=== PATIENT | male | born 1965 | race Caucasian/White ===

== ENCOUNTER 2019-05-17 05:20 | Day surgery (SDC) | payer BC ==
[~2019-05-17] VITALS: Ht 188 cm; Wt 129.3 kg
[2019-05-17 05:46] LABS: INR 0.95 (0.85-1.17); PROTIME 12.6 SECONDS (11.6-15.0)
[2019-05-17 05:48] LABS: ANION GAP 17.5 mmol/L (8-16); CALCIUM 8.6 mg/dL (8.5-10.1); CARBON DIOXIDE 21.2 mmol/L (21.0-32.0); CREATININE - SERUM 6.1 mg/dL (0.6-1.3); POTASSIUM - SERUM 4.7 mmol/L (3.5-5.1)
[2019-05-17 05:56] LABS: BASOPHILS 0.9 % (0-2); EOSINOPHILS 8.1 % (0-7); HEMATOCRIT 37.3 % (42.0-54.0); HEMOGLOBIN 11.6 g/dL (13.5-17.5); IMMATURE GRANULOCYTES 0.1 % (0-5); LYMPHOCYTES 17.7 % (15-50); MCH 28.8 pg (26.0-34.0); MCHC 31.1 g/dL (31.0-37.0); MCV 92.6 fL (80.0-100.0); MEAN PLATELET VOLUME 12.5 fL (7.4-10.4); NEUTROPHILS 62.2 % (40-80); PLATELET COUNT 458 10x3/uL (130-400); RBC 4.03 10x6/uL (4.20-6.10); RDW 14.5 % (11.5-14.5); WBC 10.4 10x3/uL (4.8-10.8)
[2019-05-17 06:54] VITALS: Ht 188 cm; Wt 129.3 kg
--- NOTE | 2019-05-22 17:00 | OP ---
PATIENT NAME: ALYX REID MEDICAL RECORD: [id number] :69 LOCATION:[facility] ADMISSION DATE: SURGEON: AKASH SCALES MD DATE OF OPERATION: 05/17/2019 REFERRED BY: Oswaldo Gray MD PREOPERATIVE DIAGNOSIS: Chronic kidney disease stage V and also cancer of the pancreas status post 2 years out from R0 Whipple resection at [facility] with no evidence of disease as of present. OPERATION PERFORMED TODAY: 1. Laparoscopic implantation of peritoneal dialysis catheter with embedding of the external catheter for later exteriorization and use when needed. 2. Creation of a left brachiocephalic arterial venous fistula Vidhi type. SURGEON: Akash Scales MD PREOPERATIVE NOTE: Mr. Reid is a 53-year-old, seemingly healthy, robust 53-year-old man with a BMI of about 34. He weighs 290-300 pounds and is 6 feet 5 inches tall. He is out 2 years from a Whipple resection and doing great so far. His kidneys though have deteriorated and it is anticipated he is going to require dialysis within the next few months. He was referred to me by Dr. Gray for placement or creation of an AV fistula and also for implantation of peritoneal dialysis catheter. We have elected to do the PD catheter at the same time as the fistula with plans to embed the catheter and exteriorize it later closer to when he needs to start peritoneal dialysis training. Under general anesthesia with also a regional nerve block of the left upper extremity, the patient was placed in supine position and prepped and draped in a sterile manner. I entered the abdomen with a 5 mm XL Optiview port and a 5-mm 0-degree straight laparoscope. This was done easily and the abdomen was then insufflated with carbon dioxide. The patient was then examined with a 30-degree angled 5-mm scope. There were numerous adhesions of small intestine and colon, I think, to the anterior abdominal wall in the upper midline. I did not take down or divide any of these adhesions. I was not able to examine the liver due to my entry high on the left in the presence of the adhesions, the lower abdomen and pelvis were relatively free of adhesions and there was no significant omentum in the pelvis. I measured before insufflation and marked on the abdominal skin with a Merit PD stencil to the left of the midline and below the level of the umbilicus. I made a vertical incision and carried this down to the anterior rectus sheath. The patient had a large number of large calcified arteries in the subcutaneous tissues and emerging from the rectus sheath with a dilated subcutaneous veins in this region as well. Hemostasis was obtained with electrocautery and a minimum number of Vicryl sutures. I placed a pursestring suture in the anterior rectus sheath at the site corresponding to that measured and determined to be suitable for the final location of the deep cuff. We chose a standard adult Merit Flex-Neck Classic catheter with dual cuffs and coil. It was rinsed and irrigated and all air expressed from the felt cuffs and it was then placed on a elena. A special introducer needle and plastic sheath was inserted through the pursestring suture and an obliquely through the substance of the rectus muscle and with the aid of laparoscopy it was passed down towards the pelvis through a preperitoneal tunnel as far as possible. The catheter was then inserted through the plastic sheath and the plastic sheath removed. The coiled end of the catheter came to rest seemingly in excellent position in the OPERATIVE REPORT [id number] ALYX REID pelvis. The deeper cuff was then pushed into the rectus and the pursestring suture tied over it. The catheter was irrigated with saline and it was determined that the tie was not too tight as it irrigated very freely. The catheter was then placed in a subcutaneous tunnel directed superiorly and laterally to the left to a premarked desirable exit site. From there, we measured directly laterally to where the end of the catheter might come to rest when embedded. Another small incision was made there and a trocar passed from lateral to the medial incisions. The catheter was at that point attached to IV tubing and 1000 cc of saline was run into the abdomen and rapidly and then run back out rapidly. We collected about 800 cc of saline before ending the procedure. That specimen of 800 cc of normal saline in the peritoneal lavage or irrigation was sent in entirety to the laboratory for cytology just due to the possibility that the malignant pancreatic cells might be present and picked up in that manner. The catheter was then heparin locked and plugged and pulled through the subcutaneous tunnel and then detached from the tunneler and the additional screw tip was placed into the plug and the plugged end of the catheter was buried in the subcutaneous tissues. The wounds were infiltrated and irrigated with Marcaine and then closed with interrupted inverted 3-0 Vicryl and then running intracuticular 4-0 Stratafix. The smaller incisions were closed with interrupted inverted subcuticular 3-0 Vicryl. All 3 incisions were sealed and further closed with Dermabond glue and dressed with Maxorb Ag, Tegaderm, and Cavilon skin prep. The patient was then reprepped and draped. A Fernando drain was placed around the left arm to act as a venous tourniquet and topical nitroglycerin ointment was placed on the intact skin of the arm and forearm. The superficial veins stood out nicely as a result of the nerve block. I examined him with ultrasound and found that he did have what would have been a suitable cephalic vein at the wrist with the radial artery was quite small. I wondered if perhaps the radial artery had been used for an arterial line when he was so ill and operated at [facility]. At any rate, radiocephalic fistula was not feasible. There was a large brachial artery and good cephalic and basilic veins. I did not think that a forearm loop graft would be the best choice, especially since we have some time to mature a fistula and went ahead with a brachiocephalic fistula. A transverse incision was made just below the antecubital space and the brachial artery and the median cubital vein were exposed, dissected from surrounding tissues and controlled with atraumatic vascular clamps or Silastic vessel loops. The vein was ligated distally and to the counter installer branch was doubly ligated and divided. The vein distally was then divided and bevelled. It was flushed with heparinized saline and treated with topical papaverine and atraumatic vascular clamp was used and proximally on the vein. The artery was occluded and then opened at the anticipated arteriotomy, it was flushed with heparinized saline and prepared for anastomosis. The vein was then anastomosed end of vein to side of artery with running 7-0 Prolene. When the anastomosis was completed and the occluding clamps and loops were released, excellent flow immediately developed within the fistula manifested by pulsatile continuous Doppler flow and a palpable pulsation and palpable thrill. There was persistence of good pulsatile ulnar artery flow at the wrist and a more feeble radial artery pulse was still present, however. The wound was irrigated with saline and then closed with interrupted inverted 3-0 Vicryl and running intracuticular 4-0 Stratafix and Dermabond glue. It was dressed with Maxorb Ag, Tegaderm, and Cavilon skin prep. At this point, the OPERATIVE REPORT [id number] ALYX REID patient was awakened and his arm was placed in a sling and he was taken to the recovery room. Blood loss during the operation was minimal about 1 cc, it was unreplaced. Sponges, instruments, and needles were accounted for and no drain was used. A specimen of a peritoneal irrigation was sent for cytology. The patient will go home today with a prescription for [place] 5/325. He can take 1 or 2 every 4 hours as needed p.r.n. pain and encouraged to use ice on the abdominal areas of tenderness or pain and he will be supplied with an abdominal binder to wear p.r.n. for his comfort aid with coughing and deep breathing, etc. He is to call my office on Monday morning and make an appointment to see me during the following week. He is to call me, of course, in the interim if there are any difficulties, problems, concerns, etc. TRANSINT:[id number] Voice Confirmation ID: [id number] DOCUMENT ID: [id number] [facility]: [facility] West[place] MD at 1700 CC: OSWALDO GRAY [id number] DICTATION DATE: 05/17/191741 RADIO SPORTSCASTER: 05/18/19 0353 [facility] 05/17/19 [facility] [address] [place] [address]
== END 2019-05-17 18:40 | disposition home or self-care (01) ==
LOC: D.OPS 05:20
PROVIDERS: Surgery; ATTEND Internal Medicine
DX: N18.5 Chronic kidney disease, stage 5 (principal); Z85.07 Personal history of malignant neoplasm of pancreas

== ENCOUNTER → 2019-08-05 18:53 | Outpatient (CLI) | payer BC ==
[2019-05-17 06:54] VITALS: BMI 36.6
[~2019-08-05 18:53] MED LIST: BAYER CHEWABLE81 MG PO; BUMEX2 MG PO; CARDURA4 MG PO; CREON (PANCRELI1 CAP PO; DILTIAZEM 24HR240 M4 PO; HYDROCODON-ACE1 EAC7 PO; LEVEMIR FL100 UNIT/1 SC; NOVOLOG INJ FLE; VITAMIN D10000 UNI1 PO
== END | disposition home or self-care (01) ==
LOC: D.LABREF 18:53
PROVIDERS: ATTEND Surgery
DX: N18.6 End stage renal disease (principal); Z99.2 Dependence on renal dialysis

== ENCOUNTER 2019-12-31 06:00 | Day surgery (SDC) | payer BC ==
[~2019-12-31] VITALS: Ht 195.6 cm; Wt 120.2 kg
[2019-12-31 06:29] LABS: ANION GAP 11.1 mmol/L (8-16); CALCIUM 8.7 mg/dL (8.5-10.1); CARBON DIOXIDE 30.7 mmol/L (21.0-32.0); CREATININE - SERUM 6.5 mg/dL (0.6-1.3); POTASSIUM - SERUM 4.8 mmol/L (3.5-5.1)
[2019-12-31 06:38] LABS: BASOPHILS 1.3 % (0-2); EOSINOPHILS 4.4 % (0-7); HEMATOCRIT 36.3 % (42.0-54.0); HEMOGLOBIN 11.3 g/dL (13.5-17.5); IMMATURE GRANULOCYTES 0.2 % (0-5); INR 0.94 (0.85-1.17); LYMPHOCYTES 22.3 % (15-50); MCH 28.9 pg (26.0-34.0); MCHC 31.1 g/dL (31.0-37.0); MCV 92.8 fL (80.0-100.0); MEAN PLATELET VOLUME 10.9 fL (7.4-10.4); MONOCYTES 14.7 % (2-11); NEUTROPHILS 57.1 % (40-80); PLATELET COUNT 406 10x3/uL (130-400); PROTIME 12.5 SECONDS (11.6-15.0); RBC 3.91 10x6/uL (4.20-6.10); RDW 14.8 % (11.5-14.5); WBC 10.3 10x3/uL (4.8-10.8)
[2019-12-31 07:20] VITALS: Ht 195.6 cm; Wt 120.2 kg
[2019-12-31] MEDS ORDERED: METOPROLOL TART25 MG PO (07:40)
[2019-12-31] MEDS ORDERED: COZAAR100 MG PO (07:41)
[2019-12-31] MEDS ORDERED: RENVELA800 MG PO (07:42)
[2019-12-31] MEDS ORDERED: ULTRAM50 MG PO (10:03)
--- NOTE | 2019-12-31 11:02 | NUR ---
1055 PT HAD AN INVOLENTARY BM AFTER SURGERY IN RR, CLEANED PT AND CHANGED LINENS.
--- NOTE | 2020-01-03 09:22 | OP ---
PATIENT NAME: ALYX REID MEDICAL RECORD: [id number] :69 [facility] DATE: SURGEON: AKASH SCALES MD DATE OF OPERATION: 12/31/2019 REFERRED BY: Dr. Solomon. DIAGNOSES: End-stage renal disease and dependence on hemodialysis and the patient electing to discontinue peritoneal dialysis in favor of hemodialysis. OPERATION PERFORMED: Removal of peritoneal dialysis catheter. SURGEON: Akash Scales MD ANESTHESIA: General with LMA per FURNITURE ASSEMBLER. PREOPERATIVE NOTE: Mr. Reid is a 54-year-old white male patient with end-stage renal disease, who has elected to stop peritoneal dialysis and is brought to the operating room today to remove his catheter. Under a general anesthetic with an LMA per FURNITURE ASSEMBLER, the patient was placed in supine position and prepped and draped in sterile manner. Two incisions were made to free the 2 Dacron felt cuffs from the surrounding subcutaneous tissues and from the rectus sheath. The catheter was removed intact and it was discarded. No specimen was submitted for culture or any other documentation by pathology. The anterior rectus sheath was closed with a [id number] 0 Vicryl suture. The wounds were then irrigated with Ancef and gentamicin solution. They were infiltrated with 0.25% Marcaine with epinephrine and then closed with interrupted inverted 3-0 Vicryl and running intracuticular 4-0 Stratafix and Dermabond glue. They were dressed with Cavilon, Maxorb AG, and Tegaderms. The patient was awakened and in stable condition returned to the recovery room. There was no blood loss during the procedure. Sponges, instruments, and needles were accounted for. No drain was used and no surgical specimen submitted for histopathology. PLAN: The patient will be discharged today. We will resume his same medications, diet, activities and dialysis schedule. Appointments to be made for him to follow up in my office either with me or with my office nurse for a wound check in 7-10 days. Until that time, he should keep the original operative dressings dry and intact. TRANSINT:[id number] Voice Confirmation ID: [id number] DOCUMENT ID: [id number] AKASH SCALES MD at 0922 CC: MANUEL SOLOMON DO [id number] DICTATION DATE: 12/31/19 1020 BUTTING SAW OPERATOR: 12/31/19 1416 [facility]P SDC 12/31/19 [facility] [address] [id number]
== END 2019-12-31 11:50 | disposition home or self-care (01) ==
LOC: D.OPS 06:00
PROVIDERS: Surgery; ATTEND Internal Medicine
DX: N18.6 End stage renal disease (principal); Z99.2 Dependence on renal dialysis

== ENCOUNTER 2020-06-17 14:03 | Inpatient (IN) | payer MEDICARE, BC ==
[~2020-06-17] VITALS: Ht 195.6 cm; Wt 120.2 kg
--- NOTE | ~2020-06-17 | HEMODYNAMI ---
PATIENT:ALYX WALSH MEDICAL RECORD: [id number] : 69 LOCATION:[place] [address] ADMISSION DATE: 06/17/20 Generatedon:111:17 Patient name: ALYX WALSH Patient #: [id number] SSN: : 1965 Date of study: 06/23/2020 Page: Of Hemodynamic Procedure Report Patient Data Patient Demographics Procedure consent was obtained First Name: ALYX Gender: Male Last Name: NICO : 1965 Patient #: [id number] Age: 55 year(s) Race: Unknown Additional ID: [id number] Contact details Address: [place] [address] State: [place] City: [place] Zip code: [address] Past Medical History Allergies: No known allergies Admission Admission Data Admission Date: 06/17/2020 Admission Time: 18:07 Room #: [facility] Height (in.): 77 BSA: 2.52 (m2) Height (cm.): 195.58 BMI: 31.42 (kg/m2) Weight (lbs.): 265 Weight (kg.): 120.2 Procedure Procedure Types Cath Procedure Peripheral Cath Diagnostic Procedure Abd/Extremity Extremities Bilat Lower Extremity Procedure Description Procedure Date Procedure Date: 06/23/2020 Procedure Start Time: 8:08 Procedure Staff Name Function Arlene Vera RT Egg Trayer [place] RT Scrub Davian Power MD Performing Physician Dylan BENTON RN Nurse Albertina Osorio RN Nurse Procedure Data Cath Procedure Fluoroscopy Diagnostic fluoroscopy Total fluoroscopy Time: time: 14.8 min 14.8 min Diagnostic fluoroscopy Total fluoroscopy dose: 416 dose: 416 mGy mGy Contrast Material Contrast Material Type Amount (ml) Isovue 300 115 Diagnostic catheters Device Type Used For End Catheter Placement Merit ULTRA BOLUS FLUSH 5Fr 65CM catheter ([id number]) DIAGNOSTIC IMT 5Fr Catheter ([id number]) Procedure Medications Medication Administration Route Dosage Fentanyl I.V. 50 mcg Versed I.V. 1 mg Lidocaine 1% added to field 20 Heparin Flush Bag added to field 3 bags (1000units/500ml NS) Benadryl I.V. 50 mg Heparin Bolus I.V. 6000 units Nitroglycerin IC/IA I.A. 300 mcg Fentanyl I.V. 25 mcg Versed I.V. 1 mg Heparin Bolus I.V. 3000 units Fentanyl I.V. 25 mcg Versed I.V. 1 mg Hemodynamics Rest BSA: 2.52 (m2) O2 Consumption: Estimated: 307.13 (ml/min) O2 Consumption indexed : Estimated:121.88 (ml/min/m) Heart Rate: 78 (bpm) Snapshots Pre Cath Intra NCS Post Cath Vital Signs Time Heart Resp SPO2 etCO2 NIBP (mmHg) Rhythm Pain Sedation Rate (ipm) (%) (mmHg) Status Level (bpm) 9:34:02 78 12 94 132/73(100) NSR 0 (11) 10(A) , No pain 9:38:22 77 14 98 39.7 132/70(105) NSR 0 (11) 10(A) , No pain 9:42:32 75 17 98 39 129/75(100) NSR 0 (11) 10(A) , No pain 9:46:50 79 14 98 37.5 132/75(105) NSR 0 (11) 9(A) , No pain 9:51:06 79 16 99 37.5 129/74(102) NSR 0 (11) 9(A) , No pain 9:55:24 78 16 99 38.3 130/73(100) NSR 0 (11) 9(A) , No pain 9:59:34 74 12 99 37.5 131/76(96) NSR 0 (11) 8(A) , No pain 10:03:48 74 15 100 37.5 129/76(101) NSR 0 (11) 8(A) , No pain 10:08:06 75 12 100 36.7 129/73(97) NSR 0 (11) 8(A) , No pain 10:12:20 74 10 98 21.7 132/74(95) NSR 0 (11) 8(A) , No pain 10:16:40 72 12 100 37.5 127/70(96) NSR 0 (11) 8(A) , No pain 10:20:59 74 14 99 39 130/72(99) NSR 0 (11) 8(A) , No pain 10:25:15 72 13 100 21 127/76(108) NSR 0 (11) 8(A) , No pain 10:29:39 75 14 99 31.5 118/72(95) NSR 0 (11) 9(A) , No pain 10:33:59 75 11 98 17.2 120/72(95) NSR 0 (11) 8(A) , No pain 10:38:11 73 10 99 15.7 126/72(95) NSR 0 (11) 8(A) , No pain 10:42:29 72 12 99 18 122/73(102) NSR 0 (11) 8(A) , No pain 10:46:47 72 10 99 16.5 124/68(102) NSR 0 (11) 8(A) , No pain 10:51:01 75 10 97 34.5 111/68(85) NSR 0 (11) 9(A) , No pain 10:55:13 74 11 99 35.2 118/70(86) NSR 0 (11) 8(A) , No pain 10:59:23 76 8 99 32.2 115/74(97) NSR 0 (11) 8(A) , No pain 11:03:41 72 14 100 33.7 121/69(93) NSR 0 (11) 8(A) , No pain 11:07:57 77 10 100 34.5 124/70(86) NSR 0 (11) 8(A) , No pain Medications Time Medication Route Dose Verified Delivered Reason Notes E ffectiveness by by 9:45:34 Benadryl I.V. 50 mg Davian Richardson for sedation Tono BENTON MD RN 9:55:56 Fentanyl I.V. 50 mcg Davian Richardson for sedation Tono BENTON MD RN 9:56:10 Versed I.V. 1 mg Davian Richardson for sedation Tono BENTON MD RN 9:56:17 Lidocaine 1% added 20ml Davian Marcelo for local to vial Tono Power anesthetic field MD DONNELLY 9:56:33 Heparin Flush added 3 bags Davian Marcelo used for Bag to Tono Power procedure (1000units/500ml field MD DONNELLY NS) 10:08:14 Heparin Bolus I.V. 6000 Davian Richardson for units Tono BENTON antiplatelet RN therapy 10:27:50 Nitroglycerin I.A. 300mcg Davian Marcelo for IC/IA Tono borrero MD, MD 10:30:51 Fentanyl I.V. 25 mcg Davian Richardson for sedation Tono BENTON MD RN 10:30:58 Versed I.V. 1 mg Davian Richardson for sedation Tono BENTON MD RN 10:40:14 Heparin Bolus I.V. 3000 Davian Richardson for units oTno piper MD RN therapy 10:53:36 Fentanyl I.V. 25 mcg Davian Richardson for sedation Tono BENTON MD RN 10:53:41 Versed I.V. 1 mg Davian Richardson for sedation Tono BENTON MD dressmaker or tailor Log Time Note 8:09:42 Patient Height : 77 inches 8:09:52 Patient Weight : 265 lbs 8:10:18 Use device set IR Diagnostic 9:15:19 ACIST Hand Control (19642) opened to sterile field. 9:15:19 ACIST Syringe (67382) opened to sterile field. 9:15:20 ACIST Manifold (47156) opened to sterile field. 9:15:22 Sterile Angiographic Pack opened to sterile field. 9:15:22 Bag Decanter (2002S) opened to sterile field. 9:15:23 Tegaderm 4 x 4 (1626W) opened to sterile field. 9:15:24 SHEATH 5FR [place] (FPP668) opened to sterile field. 9:15:25 ROADRUNNER .035 260 glide wire (E34991) opened to sterile field. 9:15:25 TUBING Contrast Injection High Pressure ([id number]) opened to sterile field. 9:15:26 DUKE 260 wire (W67991) opened to sterile field. 9:15:27 Micropuncture VSI 4FR kit opened to sterile field. 9:15:27 BENTSON 145cm wire (D18927) opened to sterile field. 9:15:30 A [employer] ULTRA BOLUS FLUSH 5Fr 65CM catheter ([id number]) was advanced over the wire and used for . 9:15:34 - 9:25:03 Time tracking: Regular hours (M-F 7:00 - 5:00) 9:25:09 Plan of Care:Hemodynamics will remain stable., Cardiac rhythm will remain stable., Comfort level will be maintained., Respiratory function will remain adequate., Patient/ family verbilizes understanding of procedure., Procedure tolerated without complication., Recovers from procedure without complications.. 9:25:17 Patient received from 5by to IR Alert and oriented. Tansferred to table in Supine position. 9:25:21 Signed procedure consent form obtained from patient. 9:25:33 H&P Date Dictated: 06/23/2020 Within 30 days and on chart.. 9:25:35 Pre-op teaching completed and patient verbalized understanding. 9:25:35 Pre-procedure instructions explained to patient. 9:25:38 Family unavailable. 9:25:42 Patient NPO since Midnight. 9:25:49 Patient allergic to No known allergies 9:25:56 Is the patient allergic to Iodine/contrast media? No. 9:26:06 Is patient on blood thinner?No 9:26:09 Patient diabetic? Yes. 9:26:11 If diabetic: On Metformin? No 9:26:15 - 9:26:17 ----Pre-sedation anethsthesia assessment.---- 9:26:22 Previous problem with sedation/anesthesia? No ? 9:26:24 Snore? No 9:26:27 Sleep apnea? No 9:26:33 Deviated septum? No 9:26:36 Opens mouth fully? Yes 9:26:39 Sticks out tongue? Yes 9:26:43 Airway obstruction? No ? 9:26:47 Dentures? No ? 9:26:51 Pre procedure: right dorsailis pedis pulse Doppler 9::54 Pre procedure: left dorsailis pedis pulse Doppler 9::58 Pre procedure: right posterior tibial pulse Doppler 9::03 Pre procedure: left posterior tibial pulse Doppler 9:27:12 Right groin area was prepped with chlora-prep and draped in sterile fashion 9:27:16 Alarms reviewed by Kae Arenas 9:27:17 - 9:27:24 Fire Safety Assessment: A--An alcohol-based skin anteseptic being used preoperatively., C--Open oxygen or nitrous oxide is being used. 9:27:29 5) <15 or on dialysis Very severe, or end stage kidney failure. 9:27:34 - 9:32:54 ECG and BP/O2 sat monitors applied to patient. 9:32:55 Vital chart was started 9:32:57 Baseline sample Acquired. 9:33:24 Full Disclosure recording started 9:45:34 Benadryl 50 mg I.V. was administered by Dylan BENTON RN; for sedation ; Verbal order read back and verified. 9:55:56 Fentanyl 50 mcg I.V. was administered by Dylan BENTON RN; for sedation; Verbal order read back and verified. 9:56:10 Versed 1 mg I.V. was administered by Dylan BENTON RN; for sedation; Verbal order read back and verified. 9:56:17 Lidocaine 1% 20ml vial added to field was administered by Davian greer MD; for local anesthetic; Verbal order read back and verified. 9:56:31 Final Timeout: patient, procedure, and site verified with staff and physician. All members of the team are in agreement. 9:56:33 Heparin Flush Bag (1000units/500ml NS) 3 bags added to field was administered by Davian Power MD; used for procedure; Verbal order read back and verified. 9:56:50 Physician arrived 9:57:44 Procedure started. 9:58:23 Local anesthetic to right femoral artery with Lidocaine 1% by Davian Power MD.INITIAL ACCESS ONLY 10:07:12 A DIAGNOSTIC IMT 5Fr Catheter ([id number]) was advanced over the wire an d used for . 10:08:14 Heparin Bolus 6000 units I.V. was administered by Dylan BENTON RN; fo r antiplatelet therapy; Verbal order read back and verified. 10:14:04 Cook RAABE 6FR. 90cm guide sheath opened to sterile field. 10:15:43 CXI SUPPORT .035 135 CM STR catheter (N49112) opened to sterile field. 10:17:08 CHOICE PT Extra Support J 300cm guide wire ([id number]) opened to steril e field. 10:21:40 [place] 1 Small Atherectomy catheter (H1S) opened to sterile field. 10:21:58 CHOICE PT Extra Support J 300cm guide wire ([id number]) opened to steril e field. 10:27:50 Nitroglycerin IC/IA 300mcg I.A. was administered by Davian Power MD; for vasodilation; Verbal order read back and verified. 10:30:51 Fentanyl 25 mcg I.V. was administered by Dylan BENTON RN; for sedation; Verbal order read back and verified. 10:30:58 Versed 1 mg I.V. was administered by Dylan BENTON RN; for sedation; Verbal order read back and verified. 10:33:39 Inflate balloon Inflation number: 1 A NANOCROSS ELITE 3 X 150 ([id number]) was prepped and advanced across the Undefined1 , then inflated . 10:34:44 INFLATOR BasixTOUCH (MR4754) opened to sterile field. 10:40:14 Heparin Bolus 3000 units I.V. was administered by Dylan BENTON RN; fo r antiplatelet therapy; Verbal order read back and verified. 10:40:44 Timer 1 started at 10:09 AM, stopped at 10:40 AM, duration 00:31:29 sec . 10:52:11 Inflate balloon Inflation number: 1 A NANOCROSS ELITE 2.5X40 ([id number]) was prepped and advanced across the Undefined2 , then inflated . 10:53:36 Fentanyl 25 mcg I.V. was administered by Dylan BENTON RN; for sedation; Verbal order read back and verified. 10:53:41 Versed 1 mg I.V. was administered by Dylan BENTON RN; for sedation; Verbal order read back and verified. 11:00:09 PERCLOSE Proglide 6FR ( [id number]) opened to sterile field. 11:06:42 Procedure ended.(Physican Out) 11:08:12 Fluoroscopy time 14.80 minutes. 11:08:20 Fluoroscopy dose: 416 mGy 11:08:20 Flurop Dose total: 416 11:08:26 Contrast amount:Isovue 300 115ml. 11:08:29 Procedure and supply charges have been captured, reviewed, submitted an d are correct. 11:11:12 Full Disclosure recording stopped Intervention Summary Intervention Notes Time ActionType Lesion and Equipment Used Action# Pressure Duration Attributes 10:33:39 Inflate Undefined1 NANOCROSS ELITE 1 0 00:00 balloon 3 X 150 ([id number]) 10:52:11 Inflate Undefined2 NANOCROSS ELITE 1 0 00:00 balloon 2.5X40 ([id number]) Device Usage Item Name Manufacture Quantity Catalog Number [facility] Minimal Lot# / Charge Number Stock Stock Serial# Code ACIST Syringe Acist 1 09871 184835 042827 584223 20 (12673) [employer] Inc ACIST Hand Acist 1 17165 208729 390570 380225 5 Control (12524) [employer] Inc ACIST Manifold Acist 1 99538 255519 433185 650592 5 (88251) [employer] Systems Inc Bag Decanter Microtek 1 2001S 027728 36957 215749 5 (2001S) Medical Inc. Sterile Cardinal 1 [id number] 066209 796789 5 Angiographic Health Pack Tegaderm 4 x 4 3M 1 1626W 353683 067432 248991 5 (1626W) SHEATH 5FR Terumo 1 VMW404 555304 106519 030153 5 Erie (GNL673) TUBING Contrast Merit 1 IFR045U 862519 353867 362617 5 Injection High Medical Pressure (MGP479S) ROADRUNNER .035 [facility] 1 W05635 723639 944319 015051 5 [id number] 260 glide wire (L50417) DUKE 260 wire [facility] 1 F91736 874904 372576 935310 5 [id number] (X11450) BENTSON 145cm [facility] 1 M83448 590846 811158 5 wire (X61978) Micropuncture VSI VASCULAR 1 7266V 861874 762070 5 VSI 4FR kit SOLUTIONS Merit ULTRA Merit 1 [id number] 203216 462445 5 BOLUS FLUSH 5Fr Medical 65CM catheter ([id number]) DIAGNOSTIC IMT Sinton 1 [id number] 331944 241298 97751 5 [id number] 5Fr Catheter Scientific ([id number]) Cook RAABE 6FR. [facility] 1 S03714 399416 367999 5 90cm guide sheath CXI SUPPORT .035 [facility] 1 L48992 958580 996264 358070 5 [id number] 135 CM STR catheter (S72253) CHOICE PT Extra Sinton 2 [id number] 14112320180925 223540 5 Support J 300cm Scientific guide wire (6044540Z2) [place] 1 Medtronic 1 H1-S 869367 0394915 887068 5 Small Atherectomy catheter (H1S) NANOCROSS ELITE Medtronic 1 [id number] 981462 73507 780014 1 3 X 150 ([id number]) INFLATOR Merit 1 UX9109 510755 229152 557178 5 BasixTOUCH Medical (RS6820) NANOCROSS ELITE Medtronic 1 [id number] 059673 644256 492196 1 2.5X40 ([id number]) PERCLOSE Olguin 1 32865-464 498851 967292 025376 5 Proglide 6FR ( Vascular 75940091) Signature Audit [place] Stage Time Signature Unsigned Intra-Procedure 06/23/2020 Arlene Vera 11:16:47 AM RT(R) [facility] [address] [place] [address]
[~2020-06-17 14:03] MED LIST changes: +COZAAR100 MG PO; +METOPROLOL TART25 MG PO; +RENVELA800 MG PO; +ULTRAM50 MG PO
--- NOTE | 2020-06-17 18:24 | NUR ---
PATIENT ARRIVES TO FLOOR AT THIS TIME.NURSE CALLS EVELIN. MAURY AT THIS TIME. NURSE TO CALL BACK FOR ORDERS.
--- NOTE | 2020-06-17 18:36 | NUR ---
RECEIVED PATIENT FROM [facility] RU[facility]. PATIENT STATES HE GOT SENT TO [facility] BY DR VILLARREAL.. PATIENT IS ALERT AND ORIENTED. VITALS ARE WNL AT THIS TIME. AT BEDSIDE. LEFT ARM RESERVE.
[2020-06-17 18:38] VITALS: BP 156/87
[2020-06-17 18:57] LABS: BASOPHILS 0.9 % (0-2); IMMATURE GRANULOCYTES 0.2 % (0-5); LYMPHOCYTES 15.8 % (15-50); MCH 30.3 pg (26.0-34.0); MCHC 31.6 g/dL (31.0-37.0); MEAN PLATELET VOLUME 11.6 fL (7.4-10.4); MONOCYTES 13.1 % (2-11); NEUTROPHIL ABS# 7.52 10x3/uL (1.78-5.38); PLATELET COUNT 346 10x3/uL (130-400); RBC 3.96 10x6/uL (4.20-6.10); WBC 11.4 10x3/uL (4.8-10.8)
[2020-06-17 19:19] LABS: ANION GAP 10.9 mmol/L (8-16); C-REACTIVE PROTEIN 4.1 mg/dL (0.0-0.9); CALCIUM 9.1 mg/dL (8.5-10.1); CREATININE - SERUM 4.5 mg/dL (0.6-1.3); POTASSIUM - SERUM 3.9 mmol/L (3.5-5.1)
[2020-06-17] MEDS ORDERED: LASIX80 MG PO (19:41)
[2020-06-17] MEDS ORDERED: PROCARDIA XL60 MG PO (19:44)
[2020-06-17] MEDS ORDERED: GABAPENTIN100 MG PO (19:45)
[2020-06-17 20:00] VITALS: BP 171/86
[2020-06-17 20:01] LABS: ERYTHROCYTE SEDIMENTATION RATE 95 mm/hr (0-20)
[2020-06-17 21:34] VITALS: BMI 31.5
[2020-06-17] MEDS ORDERED: HUMALOG 30100 UNITS/ SC (22:01)
[2020-06-18 01:08] VITALS: BP 111/66
--- NOTE | 2020-06-18 04:44 | NUR ---
PT WAS A DIRECT ADMISSION BEFORE SHIFT CHANGE. I PUT IN A 20 G TO THE LEFT HAND WHICH IS SALINE LOCKED. PT RECEIVED ANTIBIOTICS THROUGH IV WITH NO COMPLAINTS. NO COMPLAINTS OF PAIN AT THIS TIME. WAS AT BEDSIDE AT THE BEGINNING OF SHIFT AND ASSISTED WITH MEDS. SPOKE WITH DR. SOLOMON AND WAS GIVEN ORDER TO RESTART MEDS. ALSO GIVEN ORDER TO MAKE PATIENT NPO AFTER MIDNIGHT. PT WAS NOTIFIED AND VERBALIZED UNDERSTANDING. IN BED SLEEPING AT THIS TIME. BED IN LOWEST POSITION WITH CALL LIGHT IN REACH.
[2020-06-18 05:33] VITALS: BP 132/63
[2020-06-18 05:45] LABS: BASOPHILS 0.9 % (0-2); EOSINOPHILS 5.5 % (0-7); HEMOGLOBIN 11.1 g/dL (13.5-17.5); IMMATURE GRANULOCYTES 0.2 % (0-5); LYMPHOCYTE ABS# 1.84 10x3/uL (1.32-3.57); LYMPHOCYTES 16.2 % (15-50); MCH 30.5 pg (26.0-34.0); MCHC 31.7 g/dL (31.0-37.0); MCV 96.2 fL (80.0-100.0); MEAN PLATELET VOLUME 11.3 fL (7.4-10.4); MONOCYTES 14.9 % (2-11); NEUTROPHILS 62.3 % (40-80); PLATELET COUNT 365 10x3/uL (130-400); RBC 3.64 10x6/uL (4.20-6.10); RDW 14.1 % (11.5-14.5); WBC 11.4 10x3/uL (4.8-10.8)
[2020-06-18 06:08] LABS: ANION GAP 12.8 mmol/L (8-16); CALCIUM 9.1 mg/dL (8.5-10.1); CARBON DIOXIDE 30.4 mmol/L (21.0-32.0); PHOSPHOROUS 6.3 mg/dL (2.5-4.9); POTASSIUM - SERUM 4.2 mmol/L (3.5-5.1); VANCOMYCIN - RANDOM 14.6 ug/mL (10.0-20.0)
[2020-06-18 06:14] LABS: CREATININE - SERUM 5.7 mg/dL (0.6-1.3)
[2020-06-18 07:13] LABS: INR 1.04 (0.85-1.17); PROTIME 12.6 SECONDS (11.6-15.0)
--- NOTE | 2020-06-18 07:13 | NUR ---
RECEIVE SHIFT REPORT. RESTING IN BED. DENIES ANY NEEDS AT THIS TIME. NPO SINCE MIDNIGHT UNTIL DR. SEN SAYS OTHERWISE. WILL CONTINUE POC AND SAFETY PRECAUTIONS.
[2020-06-18 08:18] VITALS: BP 130/76
[2020-06-18 11:46] VITALS: BP 132/70
[2020-06-18 12:13] VITALS: Ht 195.6 cm; Wt 120.2 kg
[2020-06-18 16:11] VITALS: BP 130/63
[2020-06-18 20:00] VITALS: BP 133/81
[2020-06-19 01:00] VITALS: BP 136/90
[2020-06-19 05:29] LABS: BASOPHILS 1.4 % (0-2); EOSINOPHILS 6.1 % (0-7); HEMATOCRIT 33.7 % (42.0-54.0); HEMOGLOBIN 10.6 g/dL (13.5-17.5); IMMATURE GRANULOCYTES 0.1 % (0-5); LYMPHOCYTE ABS# 1.47 10x3/uL (1.32-3.57); LYMPHOCYTES 13.3 % (15-50); MCH 30.3 pg (26.0-34.0); MCHC 31.5 g/dL (31.0-37.0); MCV 96.3 fL (80.0-100.0); MEAN PLATELET VOLUME 11.8 fL (7.4-10.4); NEUTROPHIL ABS# 6.85 10x3/uL (1.78-5.38); NEUTROPHILS 62.1 % (40-80); PLATELET COUNT 367 10x3/uL (130-400); RDW 13.7 % (11.5-14.5)
[2020-06-19 05:41] LABS: INR 1.07 (0.85-1.17); PROTIME 12.8 SECONDS (11.6-15.0)
[2020-06-19 05:45] LABS: ANION GAP 15.7 mmol/L (8-16); CALCIUM 8.6 mg/dL (8.5-10.1); CARBON DIOXIDE 28.9 mmol/L (21.0-32.0); PHOSPHOROUS 6.8 mg/dL (2.5-4.9); POTASSIUM - SERUM 4.6 mmol/L (3.5-5.1); VANCOMYCIN - RANDOM 22.2 ug/mL (10.0-20.0)
[2020-06-19 05:55] LABS: CREATININE - SERUM 7.6 mg/dL (0.6-1.3)
[2020-06-19 08:25] VITALS: BP 131/74
--- NOTE | 2020-06-19 09:00 | NUR ---
DOWN FOR MRI VIA WHEELCHAIR.
--- NOTE | 2020-06-19 10:36 | NUR ---
MRI FOOT W/WO ORDERED. PER DR THOMAS, DO THE WITHOUT IMAGES AND HAVE HIM LOOK TO SEE IF CONTRAST IS NEEDED SINCE PT IS ON DIALYSIS AND GFR IS 8. AFTER REVIEWING THE PRE CONTRAST IMAGES HE STATED THE PATIENT DIDNT NEED THE CONTRAST HE COULD SEE WHAT HE NEEDED WITHOUT IT. DR SOLOMON AND DR SEN WERE BOTH NOTIFIED.
[2020-06-19 11:35] VITALS: BP 141/65
[2020-06-19 14:51] VITALS: BP 130/59
--- NOTE | 2020-06-19 16:13 | NUR ---
PATIENT DOWN FOR SURGERY.
--- NOTE | 2020-06-19 18:33 | NUR ---
ER CALLED AND SAID PATIENT HAD PIZZA DELIVERED.
[2020-06-19 21:44] VITALS: BP 134/85
--- NOTE | 2020-06-20 00:01 | NUR ---
PT DENIES PAIN TO LEFT FOOT, WOUND VAC INTACT W/O DRAINAGE.
[2020-06-20 01:07] VITALS: BP 123/67
[2020-06-20 05:35] LABS: BASOPHILS 1.1 % (0-2); HEMATOCRIT 34.8 % (42.0-54.0); HEMOGLOBIN 11.2 g/dL (13.5-17.5); IMMATURE GRANULOCYTES 0.2 % (0-5); LYMPHOCYTE ABS# 1.32 10x3/uL (1.32-3.57); LYMPHOCYTES 14.6 % (15-50); MCH 30.7 pg (26.0-34.0); MCHC 32.2 g/dL (31.0-37.0); MCV 95.3 fL (80.0-100.0); MEAN PLATELET VOLUME 11.5 fL (7.4-10.4); MONOCYTES 10.5 % (2-11); NEUTROPHIL ABS# 6.01 10x3/uL (1.78-5.38); NEUTROPHILS 66.6 % (40-80); PLATELET COUNT 374 10x3/uL (130-400); RBC 3.65 10x6/uL (4.20-6.10); RDW 13.5 % (11.5-14.5)
[2020-06-20 05:36] VITALS: BP 96/61
[2020-06-20 05:53] LABS: ANION GAP 16.8 mmol/L (8-16); CALCIUM 8.8 mg/dL (8.5-10.1); CARBON DIOXIDE 24.6 mmol/L (21.0-32.0); CREATININE - SERUM 9.1 mg/dL (0.6-1.3); POTASSIUM - SERUM 4.4 mmol/L (3.5-5.1); VANCOMYCIN - RANDOM 19.5 ug/mL (10.0-20.0)
[2020-06-20 08:21] VITALS: BP 112/52
--- NOTE | 2020-06-20 15:45 | NUR ---
I have reviewed this patient and I concur with the Shift Assessment completed by the Licensed Practical Nurse today this shift.
[2020-06-20 16:42] VITALS: BP 136/64
--- NOTE | 2020-06-20 20:00 | NUR ---
INITIAL ROUNDS AND ASSESSMENT COMPLETED. PT RESTING IN BED WITH NO DISTRESS. PLAN OF CARE REVIEWED. CALL LIGHT IN REACH.
[2020-06-20 21:44] VITALS: BP 153/73
[2020-06-21 05:05] VITALS: BP 127/60
[2020-06-21 05:08] LABS: EOSINOPHILS 5.3 % (0-7); HEMATOCRIT 30.6 % (42.0-54.0); HEMOGLOBIN 9.7 g/dL (13.5-17.5); IMMATURE GRANULOCYTES 0.1 % (0-5); LYMPHOCYTE ABS# 1.91 10x3/uL (1.32-3.57); LYMPHOCYTES 18.1 % (15-50); MCH 30.1 pg (26.0-34.0); MCHC 31.7 g/dL (31.0-37.0); MEAN PLATELET VOLUME 11.6 fL (7.4-10.4); MONOCYTES 15.4 % (2-11); NEUTROPHIL ABS# 6.35 10x3/uL (1.78-5.38); NEUTROPHILS 60.1 % (40-80); PLATELET COUNT 334 10x3/uL (130-400); RBC 3.22 10x6/uL (4.20-6.10); RDW 13.5 % (11.5-14.5); WBC 10.6 10x3/uL (4.8-10.8)
[2020-06-21 05:37] LABS: ANION GAP 14.4 mmol/L (8-16); CALCIUM 8.9 mg/dL (8.5-10.1); CARBON DIOXIDE 28.3 mmol/L (21.0-32.0); CREATININE - SERUM 7.8 mg/dL (0.6-1.3); PHOSPHOROUS 6.8 mg/dL (2.5-4.9); VANCOMYCIN - RANDOM 15.7 ug/mL (10.0-20.0)
[2020-06-21 05:38] LABS: POTASSIUM - SERUM 3.7 mmol/L (3.5-5.1)
[2020-06-21 07:48] VITALS: BP 136/56
--- NOTE | 2020-06-21 15:22 | NUR ---
PT ALERT AND OREITEND, CHANGED WRAP AROUND I/V. TOOK ALL MEDICATIONS WIHTOUT COMPLICATIONS. PT STATES PAIN IS TOLERABLE AND DENIES NEED FOR PAIN MEDICATION THROUGHOUT THE DAY. CURRENTLY IN DIALYSIS, ESCORTED VIA WHEELCHIAR. PT IS ABLE TO AMBULATE UNASSISTED OR WITH MIN ASSIST TO MAG WOUND VAC.
--- NOTE | 2020-06-21 16:31 | NUR ---
I have reviewed this patient and I concur with the Shift Assessment completed by the Licensed Practical Nurse today this shift.
[2020-06-21 19:00] VITALS: BP 134/66
--- NOTE | 2020-06-21 20:26 | NUR ---
INITIAL ROUNDS AND ASSESSMENT COMPLETED. PT RESTING IN BED. LEFT FOOT WITH DRESSING INTACT TO WOUND VAC. NO DRAINAGE NOTED. WILL BE NPO AFTER MIDNIGHT FOR I&D IN AM. PIV TO RIGHT HAND SALINE LOCKED. NO NEEDS AT THIS TIME. CALL LIGHT IN REACH.
--- NOTE | 2020-06-21 22:54 | NUR ---
BEDTIME MEDS GIVEN. IV ABT INFUSED. INSTRUCT NPO AFTER MIDNIGHT FOR SURGERY IN AM. WOUND VAC IN PLACE TO LEFT FOOT.
[2020-06-22] VITALS: BP 143/77
[2020-06-22 04:00] VITALS: BP 128/75
[2020-06-22 05:43] LABS: BASOPHILS 1.6 % (0-2); EOSINOPHILS 5.8 % (0-7); HEMATOCRIT 32.7 % (42.0-54.0); HEMOGLOBIN 10.1 g/dL (13.5-17.5); IMMATURE GRANULOCYTES 0.3 % (0-5); LYMPHOCYTE ABS# 1.92 10x3/uL (1.32-3.57); LYMPHOCYTES 17.8 % (15-50); MCH 29.7 pg (26.0-34.0); MCHC 30.9 g/dL (31.0-37.0); MCV 96.2 fL (80.0-100.0); MEAN PLATELET VOLUME 11.4 fL (7.4-10.4); MONOCYTES 19.5 % (2-11); NEUTROPHIL ABS# 5.93 10x3/uL (1.78-5.38); PLATELET COUNT 341 10x3/uL (130-400); RDW 13.6 % (11.5-14.5); WBC 10.8 10x3/uL (4.8-10.8)
[2020-06-22 06:20] LABS: ANION GAP 14.4 mmol/L (8-16); CALCIUM 9.2 mg/dL (8.5-10.1); CARBON DIOXIDE 27.6 mmol/L (21.0-32.0); CREATININE - SERUM 7.7 mg/dL (0.6-1.3); PHOSPHOROUS 8.2 mg/dL (2.5-4.9); VANCOMYCIN - RANDOM 20.8 ug/mL (10.0-20.0)
[2020-06-22 11:00] VITALS: BP 125/72
--- NOTE | 2020-06-22 14:17 | NUR ---
Nutrition Follow-up: Patient ESRD and on HD. Plans for AFRO tomorrow. Diet: NPO for I&D and wound VAC placement (previously Renal ADA) PO intake: none recorded Last BM: none recorded since admit Wt: 265# (06/18/20)- no new weight Meds noted: D5@50, retacrit, SSI, lantus, renagel, creon, probiotics, abx, lasix Labs noted: POC Glu 156(H) Recommend resume Renal ADA diet as soon as medically feasible. RD will continue to monitor diet advance, PO intake and wt trend. RD will follow-up 06/25/20.
--- NOTE | 2020-06-22 15:46 | NUR ---
PT ESCORTED TO SURGERY VIA STRETCHER
--- NOTE | 2020-06-22 17:03 | NUR ---
PT STATES NO PAIN.
--- NOTE | 2020-06-22 18:00 | NUR ---
I have reviewed this patient and I concur with the Shift Assessment completed by the Licensed Practical Nurse today this shift.
--- NOTE | 2020-06-22 19:30 | NUR ---
PT SITTING UP IN BED WITHOUT DISTRESS, AOX4. REQUESTED AND GIVEN SANDWICH TRAY. PT UPSET THAT HE WAS NPO ALL DAY UNTIL PROCEDURE AND THAT HE WILL BE AGAIN AFTER MN TONIGHT. DENIES OTHER NEEDS AT THIS TIME. CL IN REACH
[2020-06-22 21:03] VITALS: BP 155/73
--- NOTE | 2020-06-22 21:30 | NUR ---
FSBS 329. PT STATES HIS BS DROPPED IN THE 50S THIS AM WHILE NPO. REFUSED HUMALOG AT THIS TIME D/T BEING NPO AFTER MN, STATES HE MAY TAKE SOME IN AM IF HE IS STILL HIGH. TOOK LANTUS 34 UNITS. PT SIGNED CONSENTS AT THIS TIME. REMINDED PT HE NEEDS ANNIAI CLEDELMIS AND BILAT GROIN CLIPPED, VERBALIZED UNDERSTANDING. STATES HE WILL TAKE BATH IN AM. DENIES OTHER NEEDS. CL IN REACH
[2020-06-22 23:20] VITALS: BP 156/82
[2020-06-23] VITALS (11 sets, daily range): BP systolic 99–164; BP diastolic 54–79
[2020-06-23 04:19] LABS: BASOPHILS 1.5 % (0-2); EOSINOPHILS 6.6 % (0-7); HEMATOCRIT 31.3 % (42.0-54.0); IMMATURE GRANULOCYTES 0.2 % (0-5); LYMPHOCYTE ABS# 1.57 10x3/uL (1.32-3.57); LYMPHOCYTES 17.2 % (15-50); MCH 30.4 pg (26.0-34.0); MCHC 31.9 g/dL (31.0-37.0); MCV 95.1 fL (80.0-100.0); MEAN PLATELET VOLUME 11.1 fL (7.4-10.4); MONOCYTES 13.8 % (2-11); NEUTROPHIL ABS# 5.55 10x3/uL (1.78-5.38); NEUTROPHILS 60.7 % (40-80); PLATELET COUNT 332 10x3/uL (130-400); RBC 3.29 10x6/uL (4.20-6.10); RDW 13.5 % (11.5-14.5); WBC 9.1 10x3/uL (4.8-10.8)
[2020-06-23 04:34] LABS: APTT 32.9 SECONDS (22.8-39.4)
[2020-06-23 04:38] LABS: INR 1.09 (0.85-1.17)
[2020-06-23 04:58] LABS: ANION GAP 14.9 mmol/L (8-16); CALCIUM 8.9 mg/dL (8.5-10.1); CARBON DIOXIDE 27.1 mmol/L (21.0-32.0); CREATININE - SERUM 9.6 mg/dL (0.6-1.3); VANCOMYCIN - RANDOM 17.9 ug/mL (10.0-20.0)
[2020-06-23 04:59] LABS: PHOSPHOROUS 9.8 mg/dL (2.5-4.9)
--- NOTE | 2020-06-23 05:15 | NUR ---
FSBS 140, NO COVERAGE PER SS. NO HUMILIN GIVEN D/T PT BEING NPO. DENIES OTHER NEEDS CL IN REACH
[2020-06-24 04:00] VITALS: BP 155/74
[2020-06-24 05:22] LABS: BASOPHILS 0.8 % (0-2); EOSINOPHILS 5.9 % (0-7); HEMATOCRIT 30.7 % (42.0-54.0); HEMOGLOBIN 9.8 g/dL (13.5-17.5); IMMATURE GRANULOCYTES 0.2 % (0-5); LYMPHOCYTE ABS# 1.94 10x3/uL (1.32-3.57); LYMPHOCYTES 18.5 % (15-50); MCH 30.2 pg (26.0-34.0); MCHC 31.9 g/dL (31.0-37.0); MCV 94.8 fL (80.0-100.0); MEAN PLATELET VOLUME 11.1 fL (7.4-10.4); MONOCYTES 15.7 % (2-11); NEUTROPHIL ABS# 6.17 10x3/uL (1.78-5.38); NEUTROPHILS 58.9 % (40-80); PLATELET COUNT 357 10x3/uL (130-400); RBC 3.24 10x6/uL (4.20-6.10); RDW 13.6 % (11.5-14.5); WBC 10.5 10x3/uL (4.8-10.8)
[2020-06-24 05:59] LABS: ALBUMIN 2.4 g/dL (3.4-5.0); ANION GAP 17.3 mmol/L (8-16); BILIRUBIN - TOTAL 0.21 mg/dL (0.2-1.3); CALCIUM 8.5 mg/dL (8.5-10.1); CREATININE - SERUM 11.1 mg/dL (0.6-1.3); POTASSIUM - SERUM 4.3 mmol/L (3.5-5.1); PROTEIN - SERUM 7.7 g/dL (6.4-8.2); VANCOMYCIN - RANDOM 15.9 ug/mL (10.0-20.0)
[2020-06-24 06:13] LABS: PHOSPHOROUS 10.1 mg/dL (2.5-4.9)
--- NOTE | 2020-06-24 07:00 | NUR ---
PT LYING IN BED. RESP EVEN AND UNLABORED. AAOX4. DRESSING TO LEFT FOOT AND GROIN C/D/I. WOUND VAC IN PLACE AND FUNCTIONING PROPERLY. PT DENIES NEEDS AT THIS TIME. CLIR. BED IN LOWEST POSITION. SIDE RAILS X2
[2020-06-24 08:31] VITALS: BP 119/55
[2020-06-24 12:13] VITALS: BP 141/81
--- NOTE | 2020-06-24 16:15 | NUR ---
PT LEFT UNIT FOR DIALYSIS VIA WHEELCHAIR ACCOMPANIED BY [facility] STAFF
--- NOTE | 2020-06-24 19:00 | NUR ---
PT IS IN DIALYSIS AT THIS TIME.
--- NOTE | 2020-06-24 20:00 | NUR ---
PT IS IN HIS ROOM POST DIALYSIS. THE NURSES IN DIALYSIS STATE THAT THEY PULLED OFF 5 LITERS OF FLUID. PT PULLED THE WOUND VAC OFF WHEN HE WAS GETTING IN BED. HE ACCIDENTALLY STEPPED ON THE TUBEING. KATHRYN MAGANA, THE CHARGE NURSE, WAS NOTIFIED. SHE CAME INTO THE ROOM WITH A NEW KIT AND REAPPLIED THE WOUND VAC. BEFORE THIS HIS DRESSING WAS TAKEN OFF. A NEW GAUZE BANDAGE WAS APPLIED WITH AN AMA WRAP ON TOP OF THE GAUZE. PT SIGNED HIS CONSENT FOR SURGERY AND ANESTHESIA. PT KNOWS THAT HE CAN HAVE NOTHING TO EAT OR DRINK AFTER MIDNIGHT. HE IS VERY TALKATIVE AND IS UP AD KAUSHIK IN HIS ROOM.
--- NOTE | 2020-06-24 21:45 | NUR ---
IN PT ROOM TO GIVE HIS MEDICATIONS. HIS BLOOD SUGAR WAS 216. HE REFUSED HIS REGULAR INSULIN STATING THAT IT WOULD "BOTTOM OUT" IF HE TOOK IT. HE DID, HOWEVER, TAKE HIS 34 UNITS OF INSULIN IN THE RIGHT LOWER ABD. WHEN WE WERE FINISHED WITH MEDICINE HE WENT TO THE BR AND HAD A BM AND GOT IN BED AND IS GOING TO SLEEP.
[2020-06-24 22:37] VITALS: BP 96/69
--- NOTE | 2020-06-24 23:00 | NUR ---
PT RESTING QUIETLY IN BED WITH HIS EYES CLOSED AND RESPIRATIONS EVEN AND UNLABORED.
--- NOTE | 2020-06-25 01:58 | NUR ---
PT IS RESTING QUIETLY AT THIS TIME,
[2020-06-25 03:00] VITALS: BP 109/71
--- NOTE | 2020-06-25 05:26 | NUR ---
IN PT ROOM FOR A BS. IT WAS 191. PT ONCE AGAIN REFUSED HIS INSULIN. HE ASKED WHEN HE GOT HIS LANTUS AND TOLD HIM 0900. HE SAID HE'S WAIT ON THAT. I ASKED PT TO GET UP AND TAKE A SURGICAL BATH IN PREPARATION FOR HIS PROCEDURE. HE TOLD ME THAT HIS SURGERY WOULD NOT BE UNTIL THIS AFTERNOON AND HE'D TAKE A SHOWER WHEN HE GOT UP. WOUND VAC STILL IN PLACE ON HIS LEFT FOOT. HE HAS AN AV FISTULA TO HIS UPPER LEFT ARM. HE STATES HE IS GOING BACK TO SLEEP.
[2020-06-25 06:48] LABS: BASOPHILS 1.1 % (0-2); EOSINOPHILS 5.3 % (0-7); HEMOGLOBIN 10.6 g/dL (13.5-17.5); IMMATURE GRANULOCYTES 0.2 % (0-5); LYMPHOCYTE ABS# 1.82 10x3/uL (1.32-3.57); LYMPHOCYTES 17.4 % (15-50); MCH 30.2 pg (26.0-34.0); MCHC 31.2 g/dL (31.0-37.0); MEAN PLATELET VOLUME 12.1 fL (7.4-10.4); MONOCYTES 15.2 % (2-11); NEUTROPHIL ABS# 6.36 10x3/uL (1.78-5.38); NEUTROPHILS 60.8 % (40-80); PLATELET COUNT 375 10x3/uL (130-400); RBC 3.51 10x6/uL (4.20-6.10); RDW 13.7 % (11.5-14.5); WBC 10.5 10x3/uL (4.8-10.8)
[2020-06-25 06:51] LABS: MCV 96.9 fL (80.0-100.0)
[2020-06-25 07:27] LABS: ALBUMIN 2.7 g/dL (3.4-5.0); ANION GAP 20.2 mmol/L (8-16); BILIRUBIN - TOTAL 0.26 mg/dL (0.2-1.3); CALCIUM 8.5 mg/dL (8.5-10.1); CARBON DIOXIDE 25.1 mmol/L (21.0-32.0); CREATININE - SERUM 9.1 mg/dL (0.6-1.3); POTASSIUM - SERUM 4.3 mmol/L (3.5-5.1); PROTEIN - SERUM 7.7 g/dL (6.4-8.2); VANCOMYCIN - RANDOM 19.2 ug/mL (10.0-20.0)
[2020-06-25 07:48] VITALS: BP 117/63
--- NOTE | 2020-06-25 10:37 | OP ---
PATIENT NAME: ALYX REID MEDICAL RECORD: [id number] :69 LOCATION:D. D.2109 ADMISSION DATE:06/17/20 SURGEON: ZAHIRA SEN MD DATE OF OPERATION: 06/19/2020 PREOPERATIVE DIAGNOSES: 1. Decubitus ulcer, left foot. 2. Osteomyelitis, left foot. POSTOPERATIVE DIAGNOSES: 1. Decubitus ulcer, left foot. 2. Osteomyelitis, left foot. PROCEDURES PERFORMED: 1. Incision and debridement, left foot (skin, subcutaneous tissue, fascia). 2. Application of wound VAC, left foot (less than 50 cm2). INDICATIONS FOR THE PROCEDURE: Mr. Reid is a 55-year-old male with history of autoimmune neuropathy, diabetes and end-stage renal disease. He wears braces for ambulation and developed a wound sometime within the last few weeks over the lateral aspect of his foot. He was found to have a circular wound over the base of the fifth metatarsal with surrounding erythema and a foul odor. He was admitted and started on IV antibiotics. MRI showed evidence of marrow edema in the base of the fifth metatarsal. The exterior tissue was debrided, but there was still a foul odor. It was therefore decided to proceed to the operating room for formal debridement with placement of wound VAC. Risks, benefits and alternatives of the procedure were discussed with the patient and consent was obtained. DESCRIPTION OF THE PROCEDURE: The patient was met in the holding area where his identity and confirmation of procedure was performed. Left lower extremity was marked. He was taken to the operating room where he was placed supine on the operating table and anesthesia was administered. Tourniquet was applied to the left thigh and left leg was prepped and draped in a sterile fashion. The patient is on scheduled antibiotics, therefore did not receive any immediately preop. A timeout was performed prior to initiating the case. On initiation of the case, the leg was gravity exsanguinated and the tourniquet was raised. Total tourniquet time was 19 minutes. The eschar over the wound was elliptically excised. There was necrotic tissue along the superior distal and inferior borders. Cultures were obtained from this area. The necrosis was undermining more superiorly and this was debrided with a rongeur. The periosteum/fascia over the base of the fifth metatarsal was palpated and partially debrided. There was some fatty tissue right over the base that was left intact as it did not appear to be involved. The wound was irrigated thoroughly with saline. A wound VAC was then applied to an area measuring 3.5 cm in diameter. It was noted to have good compression and this was covered with the dressing. This completed our case. The patient was turned back over to anesthesia where he was awakened and taken to the recovery room in stable condition. POSTOPERATIVE PLAN: The patient is going to return to the floor for continued postoperative care. We will continue his IV antibiotics and follow the culture results. Planned return to the operating room next week for repeat I&D. ANESTHESIA: General. OPERATIVE REPORT [id number] ALYX REID COMPLICATIONS: None. ESTIMATED BLOOD LOSS: 5 mL. TRANSINT:[id number] Voice Confirmation ID: [id number] DOCUMENT ID: [id number] ZAHIRA SEN MD at 1037 CC: [id number] DICTATION DATE: 06/19/20 172 ASSEMBLY LINE MACHINE OPERATOR: 06/19/20 2315 ADM IN [place] [id number] [place] [address]
--- NOTE | 2020-06-25 13:05 | NUR ---
Nutrition Reassessment/Follow-up: I&D L foot and wound vac change today. Has been eating well. HD yesterday (-5 L). Diet: Renal ADA PO intake: 100% x 4 meals No new wt; last wt: 265# (06/18) Labs noted: K+ 4.3, Glu 153, Alb 2.7 Meds noted: Renagel, Humalog, Creon, Florajen, Lantus, Lasix -Nutrition needs unchanged since initial assessment; no new wt available. -Offer Nepro with meals. -Rec Goyo BID to promote wound healing if pt agreeable. -RD follow-up: 06/30
[2020-06-25 20:07] VITALS: BP 134/78
--- NOTE | 2020-06-25 22:41 | NUR ---
REPORT RECEIVED, WILL CONT POC. PT UP IN BED WITH HULL LINE CREW MEMBER AT BEDSIDE. A&O. NO S/S OF DISTRESS OBSERVED. RR EVEN & UNLABORED ON RA. BED LOCKED AND LOWERED, CL IN REACH. ASSESSMENT COMPLETED AT THIS TIME. WILL CONT TO MONITOR.
--- NOTE | 2020-06-25 22:46 | NUR ---
DIALYSIS COORDINATOR: [facility] MWF @ 12:00. KALIE JOHNSON.
[2020-06-26 04:00] LABS: BASOPHILS 1.4 % (0-2); EOSINOPHILS 6.2 % (0-7); HEMOGLOBIN 10.5 g/dL (13.5-17.5); IMMATURE GRANULOCYTES 0.3 % (0-5); LYMPHOCYTE ABS# 2.05 10x3/uL (1.32-3.57); LYMPHOCYTES 19.8 % (15-50); MCH 30.7 pg (26.0-34.0); MCHC 31.8 g/dL (31.0-37.0); MCV 96.5 fL (80.0-100.0); MEAN PLATELET VOLUME 11.3 fL (7.4-10.4); MONOCYTES 15.8 % (2-11); NEUTROPHIL ABS# 5.85 10x3/uL (1.78-5.38); NEUTROPHILS 56.5 % (40-80); PLATELET COUNT 381 10x3/uL (130-400); RBC 3.42 10x6/uL (4.20-6.10); RDW 13.5 % (11.5-14.5); WBC 10.3 10x3/uL (4.8-10.8)
[2020-06-26 04:01] VITALS: BP 141/76
[2020-06-26 04:18] LABS: ALBUMIN 2.5 g/dL (3.4-5.0); ANION GAP 18.2 mmol/L (8-16); BILIRUBIN - TOTAL 0.22 mg/dL (0.2-1.3); CALCIUM 8.7 mg/dL (8.5-10.1); CARBON DIOXIDE 24.9 mmol/L (21.0-32.0); CREATININE - SERUM 10.6 mg/dL (0.6-1.3); POTASSIUM - SERUM 4.1 mmol/L (3.5-5.1); PROTEIN - SERUM 8.3 g/dL (6.4-8.2); VANCOMYCIN - RANDOM 26.1 ug/mL (10.0-20.0)
--- NOTE | 2020-06-26 07:20 | NUR ---
SITTING UP IN BED, AWAKE/ALERT/ORIENTED, T/R SELF AD KAUSHIK, CONT OF B/B WITH BRPs PER SELF AD KAUSHIK, DENIES PAIN/OTHER DISCOMFORT AT THIS TIME, WOUND VAC TO LT FOOT IN PLACE/OPERATING WITHOUT ISSUES, CALL LIGHT/PHONE/WATER WITHIN REACH, NO S/S OF ACUTE DISTRESS OBSERVED.
[2020-06-26 08:00] VITALS: BP 116/82
[2020-06-26 10:11] LABS: HEPATITIS C ANTIBODY <0.1 S/CO RAT (0.0-0.9)
--- NOTE | 2020-06-26 19:30 | NUR ---
RECEIVED REPORT, WILL ASSUME CARE OF PT, ASKING FOR COFFEE AND ICE WATER, WILL PROVIDE, DENIES ANY OTHER NEEDS AT THIS TIME, BED IS LOW, SRX2, CALL LIGHT IN REACH, WILL CONTINUE PLAN OF CARE
[2020-06-26 22:50] VITALS: BP 131/60
[2020-06-27 01:04] VITALS: BP 109/59
--- NOTE | 2020-06-27 03:05 | NUR ---
REQUESTING BS-47, PROVIDED SNACK
--- NOTE | 2020-06-27 03:38 | NUR ---
I have reviewed this patient and I concur with the Shift Assessment completed by the Licensed Practical Nurse today this shift.
[2020-06-27 05:47] VITALS: BP 113/67
[2020-06-27 06:57] LABS: BASOPHILS 1.4 % (0-2); EOSINOPHILS 3.1 % (0-7); HEMATOCRIT 36.8 % (42.0-54.0); HEMOGLOBIN 11.8 g/dL (13.5-17.5); IMMATURE GRANULOCYTES 0.4 % (0-5); LYMPHOCYTE ABS# 1.95 10x3/uL (1.32-3.57); LYMPHOCYTES 16.2 % (15-50); MCH 30.6 pg (26.0-34.0); MCHC 32.1 g/dL (31.0-37.0); MCV 95.3 fL (80.0-100.0); MEAN PLATELET VOLUME 11.5 fL (7.4-10.4); MONOCYTES 15.2 % (2-11); NEUTROPHIL ABS# 7.68 10x3/uL (1.78-5.38); NEUTROPHILS 63.7 % (40-80); PLATELET COUNT 410 10x3/uL (130-400); RBC 3.86 10x6/uL (4.20-6.10); RDW 13.6 % (11.5-14.5); WBC 12.1 10x3/uL (4.8-10.8)
[2020-06-27 07:21] LABS: ALBUMIN 2.8 g/dL (3.4-5.0); ANION GAP 19.1 mmol/L (8-16); BILIRUBIN - TOTAL 0.25 mg/dL (0.2-1.3); CALCIUM 9.7 mg/dL (8.5-10.1); CARBON DIOXIDE 24.8 mmol/L (21.0-32.0); CREATININE - SERUM 9.7 mg/dL (0.6-1.3); PROTEIN - SERUM 9.3 g/dL (6.4-8.2)
[2020-06-27 07:24] LABS: POTASSIUM - SERUM 4.9 mmol/L (3.5-5.1)
[2020-06-27 08:29] VITALS: BP 134/64
--- NOTE | 2020-06-27 09:04 | NUR ---
PT AWAKE AND ORIENTED, SITTING UP IN BED EATING BREAFKAST. TOOK ALL MEDICATIONS WITHOUT COMPLICATIONS. STATES HE IS HOEPFUL TO GO HOME MONDAY AFTER SURGER ON MONDAY. DENIES NEED FOR SHOWER, STATES HE WILL HAVE ONE TOMORROW. NO COMLAINTS OR CONCERNS AT THIS TIME. CL IN REACH
[2020-06-27 11:42] VITALS: BP 137/77
--- NOTE | 2020-06-27 12:45 | NUR ---
PT AWAKE AND ORIENTED, LYING IN BED WATCHING T/V. NO COMPLAINTS OR CONCERNS AT THIS TIME. NO FAMILY AT BEDSIDE. CL IN REACH, SRX1
[2020-06-27 16:17] VITALS: BP 124/64
--- NOTE | 2020-06-27 17:08 | NUR ---
PT AWAKE AND ORIENTED, LYING IN BED EATING SUPPER. AT BEDSIDE. NO COMPLAINTS OR CONCERNS AT THIS TIME. CL IN REACH, SRX2.
--- NOTE | 2020-06-27 19:30 | NUR ---
PT IN BED, AAO X 4, RESP EVEN AND UNLABORED, NO DISTRESS NOTED, CL IN REACH, SR UP X 2.
[2020-06-27 20:30] VITALS: BP 140/71
[2020-06-28 04:30] VITALS: BP 129/63
--- NOTE | 2020-06-28 04:37 | NUR ---
I have reviewed this patient and I concur with the Shift Assessment completed by the Licensed Practical Nurse today this shift.
[2020-06-28 04:49] LABS: BASOPHILS 1.1 % (0-2); EOSINOPHILS 4.9 % (0-7); HEMATOCRIT 32.2 % (42.0-54.0); HEMOGLOBIN 10.5 g/dL (13.5-17.5); IMMATURE GRANULOCYTES 0.3 % (0-5); LYMPHOCYTE ABS# 2.23 10x3/uL (1.32-3.57); LYMPHOCYTES 16.1 % (15-50); MCHC 32.6 g/dL (31.0-37.0); MEAN PLATELET VOLUME 11.3 fL (7.4-10.4); MONOCYTES 14.3 % (2-11); NEUTROPHILS 63.3 % (40-80); PLATELET COUNT 431 10x3/uL (130-400); RBC 3.39 10x6/uL (4.20-6.10); RDW 13.6 % (11.5-14.5); WBC 13.9 10x3/uL (4.8-10.8)
[2020-06-28 04:54] LABS: ALBUMIN 2.6 g/dL (3.4-5.0); BILIRUBIN - TOTAL 0.22 mg/dL (0.2-1.3); CALCIUM 9.4 mg/dL (8.5-10.1); CARBON DIOXIDE 24.7 mmol/L (21.0-32.0); CREATININE - SERUM 11.7 mg/dL (0.6-1.3); POTASSIUM - SERUM 4.7 mmol/L (3.5-5.1); PROTEIN - SERUM 8.3 g/dL (6.4-8.2); VANCOMYCIN - RANDOM 20.2 ug/mL (10.0-20.0)
[2020-06-28 08:35] VITALS: BP 124/64
--- NOTE | 2020-06-28 08:35 | NUR ---
PT AWAKE AND ORIENTED, SITTING UP IN BED EATING BREAKFAST. TOOK ALL MEDICATIONS WITHOUT COMPLICATIONS. PT C/O RUBÉN, STATING THAT THEY CONTINOUSLY SEND HIM THE WRONG SAUSAGE PATTIES. HE DOESN'T WANT PATTIES, HE WANTS LINKS. CL IN REACH, NO FAMILY AT BED SIDE. PT STATES THAT HE IS EXTREMELY HOPEFUL AND EXPECTING TO D/C TOMORROW POST SURGERY AND DIALYSIS.
[2020-06-28 16:16] VITALS: BP 128/64
--- NOTE | 2020-06-28 16:56 | NUR ---
PT ALERT AND OREINTED, LYING IN BED EATING SUPPER. NO COMPLAINTS OR CONCERNS AT THIS TIME. CL IN REACH, SRX2.
--- NOTE | 2020-06-28 17:49 | NUR ---
I have reviewed this patient and I concur with the Shift Assessment completed by the Licensed Practical Nurse today this shift.
--- NOTE | 2020-06-28 19:16 | MORECARE ---
CASE MANAGEMENT DISCHARGE SUMMARY PATIENT: ALYX WALSH UNIT: [id number] ADM DATE: 06/17/20 AGE: 55 : 69 SEX: M ROOM/BED: D.2109 AUTHOR: YVONNE,DOC PHYSICIAN: REFERRING PHYSICIAN: MANUEL SOLOMON DO DATE OF SERVICE: 06/28/20 Case Management Discharge Planning Summary CT Patient Name: ALYX WALSH Attending MD : KIRAN- Medical Record: [id number] Encounter : [id number] Facility : [address] [place] [address] Admission Date : 118:07 Center Discharge Date : [address] [place] [address] Date of : DC Plan ID : [id number] Age/Sex/Martia : 55/ M/M Printed on : 06/28/20 19:15 CT DCP Review Details Anticipated D/C: Expected LOS : Case Status : INITIATED - Initial Reviewe: [id number] Jake Watts Initial Review: 06/17/2020 Planned Disposi: - Final Discharge: - Final Reviewer : : Final Review : DCP Focus Questions & Answers [facility] ALYX WALSH MR#: [id number] /Age/Sex/Vafitx65-Lrf-19 /55/M /M Attending Physician Name: [id number] Patient Account:[id number] [facility] Page -1 of 1 All edits/amendments must be made on the electronic document DICTATION DATE: 06/28/201914 COMPRESSOR ASSEMBLER: SARKIS 06/28/201914 RPT#: [id number] DC DATE: STATUS: ADM IN [facility] [address] [place] [id number] END OF REPORT
[2020-06-28 22:30] VITALS: BP 157/71
[2020-06-29 04:00] VITALS: BP 117/57
--- NOTE | 2020-06-29 06:50 | NUR ---
PATIENT LEAVING FOR I AND D
--- NOTE | 2020-06-29 09:22 | NUR ---
FLOOR NURSE UNABLE TO COME TO PHONE - REQUEST BEDSIDE REPORT
[2020-06-29 09:49] VITALS: BP 146/79
--- NOTE | 2020-06-29 09:50 | NUR ---
PATIENT BACK FROM SURGERY, NURSE CHECKS VITALS AND CALLS FOR BREAKFAST TRAY. NURSE ALSO CALLS DIALYSIS TO LET THEM KNOW THAT PATIENT IS BACK
--- NOTE | 2020-06-29 10:00 | NUR ---
NURSE TAKES PATIENT DOWN TO DIALYSIS. NAD NOTED
[2020-06-29 15:53] VITALS: BP 119/98
[2020-06-29 20:00] VITALS: BP 140/78
--- NOTE | 2020-06-29 20:13 | NUR ---
RECIEVED UP SITTING ON SIDE OF BED. ALERT AND ORIENTED X4. IV TO RT FA SL. LT FOOT DSG CDI WITH WOUND VAC FUNCTIONING PROPERLY. LT ARM RESERVED. DENIES ANY NEEDS OTHER THAT LARGE COFFEE AND SANW[place] BOX.
[2020-06-30 04:00] VITALS: BP 122/54
--- NOTE | 2020-06-30 04:09 | MORECARE ---
CASE MANAGEMENT DISCHARGE SUMMARY PATIENT: ALYX WALSH UNIT: [id number] ADM DATE: 06/17/20 AGE: 55 : 69 SEX: M ROOM/BED: D.0 AUTHOR: YVONNE,DOC PHYSICIAN: REFERRING PHYSICIAN: MANUEL SOLOMON DO DATE OF SERVICE: 06/30/20 Case Management Discharge Planning Summary CT Patient Name: ALYX WALSH Attending MD : KIRAN- Medical Record: [id number] Encounter : [id number] Facility : [address] [place] [address] Admission Date : 118:07 Center Discharge Date : [address] [place] [address] Date of : DC Plan ID : [id number] Age/Sex/Martia : 55/ M/M Printed on : 06/30/20 4:08 CT DCP Review Details Anticipated D/C: Expected LOS : Case Status : INITIATED - Initial Reviewe: [id number] - Elaine Watts Initial Review: 06/17/2020 Planned Disposi: - Final Discharge: - Final Reviewer : : Final Review : Comments CT Entered Date Type Reviewer 06/30/20 3:43 CT Discharge Planning Elaine Watts Comment CM spoke with patient's spouse at bedside regarding d/c planning. Patient lives at home with family. Patient is independent. At discharge patient plans to return home and feels this is a safe discharge. CM discussed availability of home health, rehab services, and medical equipment. Patient will need wound vac, home health services for dressing changes twice weekly. 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 CM will continue to follow and will assist as needed with dc plans/needs. CM called Sun with [facility]- to let her know about referral and attempted multiple times to fax and email referral records but the packet wasn't successful until 1644. [facility] but there was a problem with insurance acceptance. CM sent referral to [facility] in [place]. CM called to verify that referral had been received but answering service answered. CM will need to follow-up with Sun about wound-vac and with [facility] in [place] so patient can discharge home. DCP Focus Questions & Answers [facility] ALYX WALSH MR#: [id number] /Age/Sex/Hnrysa74-Fby-50 /55/M /M Attending Physician Name: [id number] Patient Account:[id number] [facility] Page -1 of 1 All edits/amendments must be made on the electronic document DICTATION DATE: 06/30/20407 BILLIARD TABLE REPAIRER: SARKIS 06/30/20407 RPT#: [id number] DC DATE: STATUS: ADM IN [facility] [address] [place] [address] END OF REPORT
[2020-06-30 07:28] VITALS: BP 116/70
--- NOTE | 2020-06-30 08:08 | NUR ---
PO MEDS GIVEN AT THIS TIME, PATIENT JUST FINISHED BREAKFAST. DENIES FURTHER NEEDS. CALL LIGHT IN REACH
--- NOTE | 2020-06-30 10:46 | NUR ---
Nutrition Follow-up ESRD on HD Diet: Renal ADA PO intake: 100% Last BM: 05/28/20 Wt: 265# (06/18/20), no new weight Meds noted: renagel, retacrit, SSI, creon, probiotics, lantus, lasix Labs noted(06/28/20): Na 131(L), BUN 66(H), Cr 11.7(H), GFR 5(L) POC Glu 103(WNL)- 06/30/20 Skin: left foot decub wound- I&D yesterday Recommend continue current diet. Patient meeting estimated energy needs. Recommend Goyo BID for nutritionally aided wound healing. RD will follow-up within 7 days if patient still admitted.
[2020-06-30 15:00] VITALS: BP 115/72
--- NOTE | 2020-06-30 18:34 | MORECARE ---
CASE MANAGEMENT DISCHARGE SUMMARY PATIENT: ALYX REID UNIT: [id number] ADM DATE: 06/17/20 AGE: 55 : 69 SEX: M ROOM/BED: D.2110 AUTHOR: YVONNE,DOC PHYSICIAN: REFERRING PHYSICIAN: MANUEL SOLOMON DO DATE OF SERVICE: 06/30/20 Case Management Discharge Planning Summary COMMENTS ENTERED DATE: 06/30/20 18:33 CT COMMENT TYPE: Discharge Planning REVIEWER: Abel Franco CM met with patient to complete DC plan and to evaluate needs. Patient lives independently at home in a [place] with his spouse, Kim Reid, . Patient stated that their home is safe and has electricity and running water. Patient stated that the home has multiple steps to enter but he can manage them without difficulty. Patient stated that he has no problems paying for medications and they fill their medications at [facility] in [place], [place]. Patient stated that primary care physician is Dr. Bao Delong. At discharge, the patient plans to return home and feels this is a safe discharge. CM discussed availability of home health, rehab services, and medical equipment. Patient declined HHS, SNF, IPR, and DME. Patient stated that he spoke with his surgeon and an arrangement for Once a week wound care would take place in the Surgeon's clinic on Tuesdays. NIKOLAS refusal for HHS signed and placed on chart. Patient stated they have Crutches, a Cane, and a Rollator. Patient stated that he receives Dialysis at [facility] in [place], [place] Mondays, Wednesdays, and Fridays. CM team informed by Renal team that IV antibiotics will be administered during dialysis and coordination has happened. [facility] coordination through CM team has occurred today. CM notified that wound vac is pending at this time. Awaiting notification regarding Wound Vac. Clarification of necessity for HH with [facility] is needed. Patient voiced no other needs at this time and is satisfied with DC plan. Transportation provider at discharge will be with his spouse, Kim. DC IMM delivered, explained, signed by the patient, and placed in chart. Signed form also left with the patient. CM will continue to follow and will assist as needed with dc plans/needs. ENTERED DATE: 06/30/20 3:43 CT COMMENT TYPE: Discharge Planning REVIEWER: Elaine Watts CM spoke with patient's spouse at bedside regarding d/c planning. Patient lives at home with family. Patient is independent. At discharge patient plans to return home and feels this is a safe discharge. CM discussed availability of home health, rehab services, and medical equipment. Patient will need wound vac, home health services for dressing changes twice weekly. 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 CM will continue to follow and will assist as needed with dc plans/needs. CM called Sun with [facility] to let her know about referral and attempted multiple times to fax and email referral records but the packet wasn't successful until 1644. CM attempted to set up [facility] services with [facility] but there was a problem with insurance acceptance. CM sent referral to [facility] in [place]. CM called to verify that referral had been received but answering service answered. CM will need to follow-up with Sun about wound-vac and with [facility] in [place] so patient can discharge home. DCP REVIEW SUMMARY ANTICIPATED D/C DATE: EXPECTED LOS : CASE STATUS: DCP Initiated INITIAL REVIEW: 06/17/2020 INITIAL REVIEWER: Elaine Watts FINAL DISCHARGE DISPOSITION: : FINAL REVIEWER: FINAL REVIEW DATE: DCP Focus Questions & Answers QUESTION: ANSWER : PATIENT: ALYX REID ENCOUNTER: [id number] MEDICAL RECORD#: [id number] ADMISSION DATE: 06/17/2020 DISCHARGE DATE: ATTENDING MD: SARA: AGE: 55 MARITAL STATUS: M DC PLAN ID: [id number] FACILITY: [facility] PRINTED ON: 06/30/20 18:34 CT All edits/amendments must be made on the electronic document DICTATION DATE: 06/30/201833 HUMANITIES AND LANGUAGES PROFESSOR: SARKIS 06/30/201833 RPT#: [id number] DC DATE: STATUS: ADM IN [facility] [address] [place] [address] END OF REPORT
--- NOTE | 2020-06-30 18:45 | MORECARE ---
CASE MANAGEMENT DISCHARGE SUMMARY PATIENT: ALYX REID UNIT: [id number] ADM DATE: 06/17/20 AGE: 55 : 69 SEX: M ROOM/BED: D.2110 AUTHOR: YVONNE,DOC PHYSICIAN: REFERRING PHYSICIAN: MANUEL SOLOMON DO DATE OF SERVICE: 06/30/20 Case Management Discharge Planning Summary COMMENTS ENTERED DATE: 06/30/20 18:33 CT COMMENT TYPE: Discharge Planning REVIEWER: Abel Frnaco CM met with patient to complete DC plan and to evaluate needs. Patient lives independently at home in a [place] with his spouse, Kim Reid, . Patient stated that their home is safe and has electricity and running water. Patient stated that the home has multiple steps to enter but he can manage them without difficulty. Patient stated that he has no problems paying for medications and they fill their medications at [facility] in [place], [place]. Patient stated that primary care physician is Dr. Bao Delong. At discharge, the patient plans to return home and feels this is a safe discharge. CM discussed availability of home health, rehab services, and medical equipment. Patient declined HHS, SNF, IPR, and DME. Patient stated that he spoke with his surgeon and an arrangement for Once a week wound care would take place in the Surgeon's clinic on Tuesdays. NIKOLAS refusal for HHS signed and placed on chart. Patient stated they have Crutches, a Cane, and a Rollator. Patient stated that he receives Dialysis at [facility] in [place], [place] Mondays, Wednesdays, and Fridays. CM team informed by Renal team that IV antibiotics will be administered during dialysis and coordination has happened. [facility] coordination through CM team has occurred today. CM notified that wound vac is pending at this time. Awaiting notification regarding Wound Vac. Clarification of necessity for HH with [facility] is needed. Patient voiced no other needs at this time and is satisfied with DC plan. Transportation provider at discharge will be with his spouse, Kim. DC IMM delivered, explained, signed by the patient, and placed in chart. Signed form also left with the patient. CM will continue to follow and will assist as needed with dc plans/needs. ENTERED DATE: 06/30/20 3:43 CT COMMENT TYPE: Discharge Planning REVIEWER: Elaine Watts CM spoke with patient's spouse at bedside regarding d/c planning. Patient lives at home with family. Patient is independent. At discharge patient plans to return home and feels this is a safe discharge. CM discussed availability of home health, rehab services, and medical equipment. Patient will need wound vac, home health services for dressing changes twice weekly. 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 CM will continue to follow and will assist as needed with dc plans/needs. CM called Sun with [facility] to let her know about referral and attempted multiple times to fax and email referral records but the packet wasn't successful until [id number]. CM attempted to set up [facility] services with [facility] but there was a problem with insurance acceptance. CM sent referral to [facility] in [place]. CM called to verify that referral had been received but answering service answered. CM will need to follow-up with Sun about wound-vac and with [facility] in [place] so patient can discharge home. DCP REVIEW SUMMARY ANTICIPATED D/C DATE: EXPECTED LOS : CASE STATUS: DCP Initiated INITIAL REVIEW: 06/17/2020 INITIAL REVIEWER: Elaine Watts FINAL DISCHARGE DISPOSITION: : FINAL REVIEWER: FINAL REVIEW DATE: DCP Focus Questions & Answers DCP Evaluation QUESTION: ANSWER Patient and/or caregiver agree upon recommended discharge plan? : Yes Family / Caregiver's ability to cope with chronic illness: : a. Adequate (ability to meet patient's medical needs, ensures patient attends medical appts.) Patient's current cognitive status: : *Oriented to person, place, situation, time and present Patient's ability to cope with chronic illness : d. No chronic illness Patient gives permission to discuss discharge plans with: (name, relationship and number) : spouse, Kim Reid, Does the patient have the ability to pay for or attain post discharge needs / services? : Yes Functional screen assessment: : Basic needs can adequately be met by self Family / Caregiver's ability to cope with chronic illness: : a. Adequate (ability to meet patient's medical needs, ensures patient attends medical appts.) Physical Status: : Independent with ADL's Equipment needed for post hospitalization: : Other Is there a likelihood that the patient will require additional services to return to the preadmission environment? : Yes Living Arrangements: : Home with Spouse/Significant Other Other Equipment comments: : [facility] WOUND VAC Patient with capacity for self-care or can be cared for in same environment as prior to hospitalization? : Yes Baseline cognitive status: : *Oriented to person, place, situation, time and present Physical environment modification needed / anticipated for discharge: : No Medication Management: : Patient states can read and understand medication labels Medication Management: : Patient states can afford medications Pharmacy name(s): : [facility] in [place], [place] Does Patient have transportation to get home and to follow-up medical appointments when discharged from the hospital? : Yes Would patient like to participate in any Care Coordination programs (if applicable): : Not applicable Does the patient have electricity at home? : Yes Does the patient have running water in their house? : Yes Equipment in use: : Walker - Rollator Equipment in use: : Crutches Equipment in use: : Cane - Single Leg Mental health screen: : No mental health history DCP Re-evaluation QUESTION: ANSWER Would patient like to participate in any Care Coordination programs (if applicable): : Not applicable PATIENT: ALYX REID ENCOUNTER: [id number] MEDICAL RECORD#: [id number] ADMISSION DATE: 06/17/2020 DISCHARGE DATE: ATTENDING MD: SARA: AGE: 55 MARITAL STATUS: M DC PLAN ID: [id number] FACILITY: [facility] PRINTED ON: 06/30/20 18:45 CT All edits/amendments must be made on the electronic document DICTATION DATE: 06/30/201844 TESTING COORDINATOR: SARKIS 06/30/201844 RPT#: [id number] DC DATE: STATUS: ADM IN [facility] [address] [place] [address] END OF REPORT
--- NOTE | 2020-06-30 20:30 | NUR ---
PT IN BED, AAO X 4, PT RESP EVEN AND UNLABORED, NO DISTRESS NOTED, CL IN REACH, SR UP X 2.
[2020-06-30 21:00] VITALS: BP 148/65
[2020-07-01 04:00] VITALS: BP 158/78
--- NOTE | 2020-07-01 05:46 | NUR ---
I have reviewed this patient and I concur with the Shift Assessment completed by the Licensed Practical Nurse today this shift.
[2020-07-01 08:01] VITALS: BP 124/59
--- NOTE | 2020-07-01 08:40 | OP ---
PATIENT NAME: ALYX REID MEDICAL RECORD: [id number] :69 LOCATION:D. D.2109 ADMISSION DATE:06/17/20 SURGEON: ZAHIRA SEN MD DATE OF OPERATION: 06/22/2020 PREOPERATIVE DIAGNOSES: 1. Decubitus ulcer, left foot, status post incision and drainage. 2. Osteomyelitis, left foot. POSTOPERATIVE DIAGNOSES: 1. Decubitus ulcer, left foot, status post incision and drainage. 2. Osteomyelitis, left foot. PROCEDURE PERFORMED: 1. Incision and debridement, left foot (skin, subcutaneous tissue, fascia). 2. Application of wound VAC, left foot (less than 50 cm-squared). INDICATIONS: Mr. Reid is a 55-year-old male with history of decubitus ulcer over the base of the fifth metatarsal of the left foot. He underwent I and D of the wound with placement of wound VAC and returns to the operating room today for repeat I and D and wound inspection. Risks, benefits, and alternatives of surgery were discussed with the patient and consent was obtained. DESCRIPTION OF PROCEDURE: The patient was met in the holding area where his identity and confirmation of procedure was performed. Left lower extremity was marked. He was taken to the operating room where he was placed supine on the operating table. Anesthesia was administered. Tourniquet was applied to the left thigh. The left leg was prepped and draped in a sterile fashion. The patient was on scheduled antibiotics; therefore, did not receive any immediately preop. A timeout was performed for initiation of the case. On initiation of the case, the wound was explored. Tissue in the base of the wound was yellowish-brown, did not have any significant granulation or blood flow. The skin edges were blanched. Tissue on the base of the wound over the base of the fifth metatarsal was excised with a scalpel. The skin edges were also resected and there was some sluggish refill, but again not real risk of bleeding. There was more bleeding along the plantar aspect of the wound, but the bleeding dorsally was very sluggish. Debridement was completed. Wound was irrigated thoroughly with saline. There did not appear to be any purulent tissue remaining just nonviable tissue from the circulation. A wound VAC was then placed over wound measuring 4 x 4 cm. There was noted to have good compression and this was covered with a sterile bandage. The patient was turned back over to anesthesia where he was awakened and taken to recovery room in stable condition. POSTOPERATIVE PLAN: The patient is going to return to the floor for continued postoperative care. We will continue his IV antibiotics and plan to return to the operating room later this week for repeat I and D with VAC change, possible amputation. At this point, I am concerned about the circulation in his foot and healing of any potential partial foot amputation. He is scheduled for arteriogram tomorrow, which hopefully can help improve the blood flow. If he does have improved blood flow, we may be able to perform a fifth partial ray amputation in order to get the wound closed and healed. Otherwise, he may be considering a below-knee amputation. COMPLICATIONS: None. OPERATIVE REPORT [id number] ALYX REID ESTIMATED BLOOD LOSS: 5 mL. ANESTHESIA: General. TRANSINT:[id number] Voice Confirmation ID: [id number] DOCUMENT ID: [id number] ZAHIRA SEN MD at 0840 CC: [id number] DICTATION DATE: 06/22/20 170 BUS SYSTEM OPERATOR: 06/23/[address] [facility] [address] [place] [address]
--- NOTE | 2020-07-01 08:41 | OP ---
PATIENT NAME: ALYX REID MEDICAL RECORD: [id number] :69 LOCATION:D. D.2109 ADMISSION DATE:06/17/20 SURGEON: ZAHIRA SEN MD DATE OF OPERATION: 06/25/2020 PREOPERATIVE DIAGNOSES: 1. Decubitus ulcer, left foot, status post I&D. 2. Osteomyelitis, left foot. POSTOPERATIVE DIAGNOSES: 1. Decubitus ulcer, left foot, status post I&D. 2. Osteomyelitis, left foot. PROCEDURE PERFORMED: 1. Incision and debridement, left foot (skin, subcutaneous tissue, fascia, bone). 2. Application of wound VAC, left foot (less than 50 cm-squared). INDICATIONS FOR THE PROCEDURE: Mr. Reid is a 55-year-old male with history of autoimmune neuropathy and decubitus ulcer to the left foot. We performed serial I&Ds of the foot. He returns today for repeat I&D with wound VAC change. Risks, benefits and alternatives of surgery were discussed with the patient and consent was obtained. DESCRIPTION OF THE PROCEDURE: The patient was met in the holding area where his identity, confirmation of procedure was performed. Left lower extremity was marked. He was taken to the operating room where he was placed supine on the operating table and anesthesia was administered. A tourniquet was applied to the left thigh and the left leg was prepped and draped in a sterile fashion. The patient was on scheduled antibiotics; therefore, he did not receive any immediately preop. A timeout was performed before initiating the case. On initiation of the case, the wound was explored and noted to have much improved bleeding circumferentially. There was granulation at the edges of the wound and in the fatty tissues at the base. The base of the 5th metatarsal was present within the wound bed with intact periosteum and tendon was covering this area. Overall, the wound was clean. It was irrigated thoroughly with saline. A wound VAC was then applied to the wound measuring 4 x 4 cm. Compression was confirmed in the operating room and a dressing was then used to cover the VAC sponge. The patient was turned back over to anesthesia where he was awakened and taken to the recovery room in stable condition. POSTOPERATIVE PLAN: The patient is going to return to the floor for continued care. We will continue his IV antibiotics and we will discuss further options regarding his wound treatment. COMPLICATIONS: None. ESTIMATED BLOOD LOSS: 5 mL. ANESTHESIA: General. TRANSINT:[id number] Voice Confirmation ID: [id number] DOCUMENT ID: [id number] OPERATIVE REPORT [id number] ALYX REID,ZAHIRA Fall MD at 0841 CC: [id number] DICTATION DATE: 06/25/20 1256 SOLE BUFFER: 06/25/20 1333 ADM IN [place] [id number] [place] [address]
--- NOTE | 2020-07-01 08:44 | OP ---
PATIENT NAME: ALYX REID MEDICAL RECORD: [id number] :69 LOCATION:D. D.2109 ADMISSION DATE:06/17/20 SURGEON: ZAHIRA SEN MD DATE OF OPERATION: 06/29/2020 PREOPERATIVE DIAGNOSES: 1. Decubitus ulcer of left foot, status post incision and drainage. 2. Osteomyelitis, left foot. POSTOPERATIVE DIAGNOSES: 1. Decubitus ulcer of left foot, status post incision and drainage. 2. Osteomyelitis, left foot. PROCEDURE PERFORMED: 1. Incision and debridement, left foot (skin, subcutaneous tissue, fascia, bone). 2. Application of Kerecis graft. 3. Application of wound VAC, left foot (less than 50 cm-squared). INDICATIONS FOR THE PROCEDURE: Mr. Reid is a 55-year-old male with history of autoimmune neuropathy and diabetes. He developed a wound over the lateral aspect of his left foot over the base of the fifth metatarsal. He underwent multiple I&Ds and the tissue is improving. He also underwent a procedure to improve blood flow to the area, which is improved as well. He returns today for repeat I&D with placement of Kerecis graft and the wound VAC. Risks, benefits and alternatives of surgery were discussed with the patient and consent was obtained. DESCRIPTION OF THE PROCEDURE: The patient was met in the holding area where his identity and confirmation of procedure was performed. Left lower extremity was marked. He was taken to the operating room where he was placed supine on the operating table and anesthesia was administered. Tourniquet was applied to the left thigh and left leg was prepped and draped in a sterile fashion. The patient is on preoperative antibiotics; therefore, did not receive any immediately preop. A timeout was performed before initiating the case. On initiation of the case, the wound was explored and noted to have good granulation tissue around the edges. The base of the 5th metatarsal was present within the central wound bed. There was a small amount of necrotic tissue at the plantar border of the wound. The edges were excised sharply with the scalpel. The wound bed itself was also scraped and freshened with the scalpel until we had good bleeding circumferentially. Total wound measured 4 cm in diameter. A Kerecis graft was then applied in the wound. The graft was meshed before application. It was secured in place with a running Monocryl suture. Adaptic was then placed over the graft and a wound VAC was applied. This provided good coverage of the wound. The wound VAC was noted to have good compression in the operating room and then was covered with a sterile dressing. The patient was turned back over to anesthesia where he was awakened and taken to recovery room in stable condition. POSTOPERATIVE PLAN: The patient is going to return to the floor for continued postoperative care. We will need to arrange for home wound VAC and we will plan to continue with biweekly wound VAC changes. He needs to continue IV antibiotics times 6 weeks. He is touchdown weightbearing on the left lower extremity. We will need to limit his upright activities to avoid a significant amount of pressure over this wound and allow for healing. OPERATIVE REPORT [id number] ALYX REID COMPLICATIONS: None. ANESTHESIA: General. BLOOD LOSS: 5 mL. TRANSINT:[id number] Voice Confirmation ID: [id number] DOCUMENT ID: [id number] ZAHIRA SEN MD at 0844 CC: [id number] DICTATION DATE: 06/29/20909 DRAWING CHECKER: 06/29/20 1006 ADM IN [place] [id number] [place] [id number]
--- NOTE | 2020-07-01 14:10 | NUR ---
NURSE REVIEWS DC INSTRUCTIONS WITH PATIENT. NURSE IN ROOM WITH DR SEN. DC IV WITH CATH TIP INTACT. PATIENT DENIES QUESTIONS. DR SEN SWITCHES WOUND VAC OUT WITH PORTABLE.
--- NOTE | 2020-07-01 14:33 | NUR ---
PATIENT WHEELED OUT AT THIS TIME, BELONGINGS IN HAND. PERSONAL VEHICLE WITH . NAD NOTED
--- NOTE | 2020-07-01 16:28 | NUR ---
MICHAEL NOTIFIED OF PT DC AND WOUND VAC IS NO LONGER IN USE. PLACED IN DIRTY UTILITY ROOM FOR PCIK UP.
--- NOTE | 2020-07-02 23:22 | MORECARE ---
CASE MANAGEMENT DISCHARGE SUMMARY PATIENT: ALYX REID UNIT: [id number] ADM DATE: 06/17/20 AGE: 55 : 67 SEX: M ROOM/BED: D.2110 AUTHOR: YVONNE,DOC PHYSICIAN: REFERRING PHYSICIAN: MANUEL SOLOMON DO DATE OF SERVICE: 07/02/20 Case Management Discharge Planning Summary COMMENTS ENTERED DATE: 06/30/20 18:33 CT COMMENT TYPE: Discharge Planning REVIEWER: bAel Franco CM met with patient to complete DC plan and to evaluate needs. Patient lives independently at home in a [place] with his spouse, Kim Reid, . Patient stated that their home is safe and has electricity and running water. Patient stated that the home has multiple steps to enter but he can manage them without difficulty. Patient stated that he has no problems paying for medications and they fill their medications at [facility] in [place], [place]. Patient stated that primary care physician is Dr. Bao Delong. At discharge, the patient plans to return home and feels this is a safe discharge. CM discussed availability of home health, rehab services, and medical equipment. Patient declined HHS, SNF, IPR, and DME. Patient stated that he spoke with his surgeon and an arrangement for Once a week wound care would take place in the Surgeon's clinic on Tuesdays. NIKOLAS refusal for HHS signed and placed on chart. Patient stated they have Crutches, a Cane, and a Rollator. Patient stated that he receives Dialysis at [facility] in [place], [place] Mondays, Wednesdays, and Fridays. CM team informed by Renal team that IV antibiotics will be administered during dialysis and coordination has happened. [facility] coordination through CM team has occurred today. CM notified that wound vac is pending at this time. Awaiting notification regarding Wound Vac. Clarification of necessity for HH with [facility] is needed. Patient voiced no other needs at this time and is satisfied with DC plan. Transportation provider at discharge will be with his spouse, Kim. DC IMM delivered, explained, signed by the patient, and placed in chart. Signed form also left with the patient. CM will continue to follow and will assist as needed with dc plans/needs. ENTERED DATE: 06/30/20 3:43 CT COMMENT TYPE: Discharge Planning REVIEWER: Elaine Watts CM spoke with patient's spouse at bedside regarding d/c planning. Patient lives at home with family. Patient is independent. At discharge patient plans to return home and feels this is a safe discharge. CM discussed availability of home health, rehab services, and medical equipment. Patient will need wound vac, home health services for dressing changes twice weekly. Patient has dialysis MWF at [place] and will get intermediate project manager antibiotic therapy there, NIKOLAS signed Patient will have family to transport home. CM will continue to follow and will assist as needed with dc plans/needs. CM called Sun with [facility] to let her know about referral and attempted multiple times to fax and email referral records but the packet wasn't successful until [id number]. CM attempted to set up [facility] services with [facility] but there was a problem with insurance acceptance. CM sent referral to [facility] in [place]. CM called to verify that referral had been received but answering service answered. CM will need to follow-up with Sun about wound-vac and with [facility] in [place] so patient can discharge home. DCP REVIEW SUMMARY ANTICIPATED D/C DATE: EXPECTED LOS : CASE STATUS: DCP Initiated INITIAL REVIEW: 06/17/2020 INITIAL REVIEWER: Elanie Watts FINAL DISCHARGE DISPOSITION: : FINAL REVIEWER: FINAL REVIEW DATE: DCP Focus Questions & Answers DCP Evaluation QUESTION: ANSWER Patient and/or caregiver agree upon recommended discharge plan? : Yes Family / Caregiver's ability to cope with chronic illness: : a. Adequate (ability to meet patient's medical needs, ensures patient attends medical appts.) Patient's current cognitive status: : *Oriented to person, place, situation, time and present Patient's ability to cope with chronic illness : d. No chronic illness Patient gives permission to discuss discharge plans with: (name, relationship and number) : spouse, Kim Reid, Does the patient have the ability to pay for or attain post discharge needs / services? : Yes Functional screen assessment: : Basic needs can adequately be met by self Family / Caregiver's ability to cope with chronic illness: : a. Adequate (ability to meet patient's medical needs, ensures patient attends medical appts.) Physical Status: : Independent with ADL's Equipment needed for post hospitalization: : Other Is there a likelihood that the patient will require additional services to return to the preadmission environment? : Yes Living Arrangements: : Home with Spouse/Significant Other Other Equipment comments: : [facility] WOUND VAC Patient with capacity for self-care or can be cared for in same environment as prior to hospitalization? : Yes Baseline cognitive status: : *Oriented to person, place, situation, time and present Physical environment modification needed / anticipated for discharge: : No Medication Management: : Patient states can read and understand medication labels Medication Management: : Patient states can afford medications Pharmacy name(s): : [facility] in [place], [place] Does Patient have transportation to get home and to follow-up medical appointments when discharged from the hospital? : Yes Would patient like to participate in any Care Coordination programs (if applicable): : Not applicable Does the patient have electricity at home? : Yes Does the patient have running water in their house? : Yes Equipment in use: : Walker - Rollator Equipment in use: : Crutches Equipment in use: : Cane - Single Leg Mental health screen: : No mental health history DCP Re-evaluation QUESTION: ANSWER Would patient like to participate in any Care Coordination programs (if applicable): : Not applicable PATIENT: ALYX REID ENCOUNTER: [id number] MEDICAL RECORD#: [id number] ADMISSION DATE: 06/17/2020 DISCHARGE DATE: 07/01/2020 ATTENDING MD: SARA: AGE: 55 MARITAL STATUS: M DC PLAN ID: [id number] FACILITY: [facility] PRINTED ON: 07/02/20 23:22 CT All edits/amendments must be made on the electronic document DICTATION DATE: 07/02/202321 MANAGER FLOOR: SARKIS 07/02/202321 RPT#: [id number] DC DATE:07/01/20 STATUS: DIS IN [facility] [address] [place] [address] END OF REPORT
== END 2020-07-01 14:35 | disposition home or self-care (01) | DRG 623 ==
LOC: D.M2 14:03
PROVIDERS: Internal Medicine Nephrology; Orthopaedic Surgery; Radiology Diagnostic Radiology; ADMIT Internal Medicine; ATTEND Internal Medicine
PROC: 2W1TX6Z Compression of Left Foot using Pressure Dressing (ICD-10-PCS; 2020-06-19)
PROC: 5A1D70Z Performance of Urinary Filtration, Intermittent, Less than 6 Hours Per Day (ICD-10-PCS; 2020-06-19)
PROC: 0JDR0ZZ Extraction of Left Foot Subcutaneous Tissue and Fascia, Open Approach (ICD-10-PCS; 2020-06-19 14:00)
PROC: 0JBR0ZZ Excision of Left Foot Subcutaneous Tissue and Fascia, Open Approach (ICD-10-PCS; principal; 2020-06-22 12:30)
PROC: 04CQ3ZZ Extirpation of Matter from Left Anterior Tibial Artery, Percutaneous Approach (ICD-10-PCS; 2020-06-23)
PROC: 04CS3ZZ Extirpation of Matter from Left Posterior Tibial Artery, Percutaneous Approach (ICD-10-PCS; 2020-06-23)
PROC: 0QDP0ZZ Extraction of Left Metatarsal, Open Approach (ICD-10-PCS; 2020-06-25)
PROC: 0JBR0ZZ Excision of Left Foot Subcutaneous Tissue and Fascia, Open Approach (ICD-10-PCS; 2020-06-29)
PROC: 0HRNXK3 Replacement of Left Foot Skin with Nonautologous Tissue Substitute, Full Thickness, External Approach (ICD-10-PCS; 2020-06-29)
DX: E11.69 Type 2 diabetes mellitus with other specified complication (principal); C25.9 Malignant neoplasm of pancreas, unspecified; M86.8X7 Other osteomyelitis, ankle and foot; I12.0 Hypertensive chronic kidney disease with stage 5 chronic kidney disease or end stage renal disease; E11.40 Type 2 diabetes mellitus with diabetic neuropathy, unspecified; N18.6 End stage renal disease; L89.890 Pressure ulcer of other site, unstageable; L08.9 Local infection of the skin and subcutaneous tissue, unspecified; D63.1 Anemia in chronic kidney disease; I70.202 Unspecified atherosclerosis of native arteries of extremities, left leg; E11.22 Type 2 diabetes mellitus with diabetic chronic kidney disease; Z99.2 Dependence on renal dialysis; E11.621 Type 2 diabetes mellitus with foot ulcer

== ENCOUNTER 2020-08-13 05:38 | Inpatient (IN) | payer MEDICARE, BC ==
[~2020-08-13] VITALS: Ht 195.6 cm; Wt 118.2 kg
[~2020-08-13 05:38] MED LIST changes: +GABAPENTIN100 MG PO; +HUMALOG 30100 UNITS/ SC; +LASIX80 MG PO; +PROCARDIA XL60 MG PO; +REQUIP0.25 MG PO; +TUMS X-STR300 MG PO
[2020-08-13 06:32] LABS: BASOPHILS 1.4 % (0-2); HEMATOCRIT 36.9 % (42.0-54.0); HEMOGLOBIN 12.2 g/dL (13.5-17.5); LYMPHOCYTES 10.7 % (15-50); MCH 30.6 pg (26.0-34.0); MCV 92.5 fL (80.0-100.0); MEAN PLATELET VOLUME 9.9 fL (7.4-10.4); MONOCYTES 6.9 % (2-11); PLATELET COUNT 441 10x3/uL (130-400); RBC 3.99 10x6/uL (4.20-6.10); RDW 14.8 % (11.5-14.5); WBC 11.2 10x3/uL (4.8-10.8)
[2020-08-13 06:39] LABS: ANION GAP 16.9 mmol/L (8-16); CALCIUM 9.4 mg/dL (8.5-10.1); CARBON DIOXIDE 26.8 mmol/L (21.0-32.0); CREATININE - SERUM 6.2 mg/dL (0.6-1.3); POTASSIUM - SERUM 4.7 mmol/L (3.5-5.1)
[2020-08-13] MEDS ORDERED: B-12 DOTS500 MCG PO (06:55)
[2020-08-13] MEDS ORDERED: PREDNISONE10 MG PO (06:55)
[2020-08-13] MEDS ORDERED: PROBIOTIC1 EAC1 PO (06:55)
[2020-08-13] MEDS ORDERED: CENTRUM MEN'S1 EACH PO (06:56)
[2020-08-13 07:00] VITALS: BMI 30.9
--- NOTE | 2020-08-13 11:00 | NUR ---
PT ARRIVED TO FLOOR VIA BED FROM PACU, PT IS AWAKE AND ALERT ASKING FOR HIS , IV RESTARTED AT 20mL/HR TO RIGHT WRIST, PROVIDED PT WATER TO DRINK, DRESSING TO BKA C/D/I, VITAL SIGNS STABLE, NO SIGNS OF DISTRESS, NO NEEDS AT THIS TIME
[2020-08-13 11:01] VITALS: BP 130/76
[2020-08-13 11:05] VITALS: BP 130/76; BMI 30.9
[2020-08-13 13:28] VITALS: Ht 195.6 cm; Wt 118.2 kg
--- NOTE | 2020-08-13 16:15 | NUR ---
THANK YOU FOR THIS REFERRAL. PATIENT IS POST OP DAY 0. WE WILL REVIEW WHEN THERAPY NOTES ARE AVAILABLE. -EDGAR JAMESON LPN, CLINICAL LIAISON
[2020-08-13 17:18] VITALS: BP 158/84
[2020-08-13 22:39] VITALS: BP 136/80
[2020-08-14] VITALS: BP 146/76
[2020-08-14 04:00] VITALS: BP 124/67
[2020-08-14 06:11] LABS: CREATININE - SERUM 7.5 mg/dL (0.6-1.3); VANCOMYCIN - RANDOM 16.3 ug/mL (10.0-20.0)
[2020-08-14 08:15] VITALS: BP 167/84
--- NOTE | 2020-08-14 11:47 | NUR ---
THANK YOU FOR THIS REFERRAL. VISITED WITH PATIENT DURING DIALYSIS. PATIENT IS CONCERNED WITH HOW HE WILL MANAGE HIS SHOWERS AND STEPS INTO HIS HOME. STS HE IS "VERY WEAK" NOTIFIED Arnold HALL RN, BPM DEVELOPER THAT HE IS AGREEABLE TO ACUTE REHAB. SCREEN IN PROGRESS. -EDGAR JAMESON LPN, CLINICAL LIAISON
--- NOTE | 2020-08-14 12:41 | NUR ---
0700 BEDSIDE REPORT RECEIVED PT AWAKE ALERT IN BED CHEWING BUBBLE GUM LBKA AMA WRAP DRESSING CDI BED ALARM TURNED ON REFUSED SCD EDUCASTIION PROVIDED ON SCD AND ON IS EXPLAINING THE PURPOSE OF EACH PT DID PERFORM ON IS
--- NOTE | 2020-08-14 12:49 | NUR ---
0950 TRANSPORTED TO DIALYSIS UNIT VIA BED PAIN MED GIVEN
--- NOTE | 2020-08-14 12:51 | NUR ---
1230 CBS 120 LUNCH TRY AND PO MEDS TAKEN TO PATIENT IN DIALYSIS
--- NOTE | 2020-08-14 12:56 | NUR ---
1230 DR SEN AT BEDSIDE SPEEKING WITH PT
[2020-08-14] MEDS ORDERED: HYDROCODON-ACE1 EAC7 PO (13:26)
[2020-08-14] MEDS ORDERED: VANCOMYCIN 1 GM/1 G1 IV (13:57)
[2020-08-14] MEDS ORDERED: MAXIPIME 1 GM/D51 G1 IV (14:03)
[2020-08-14 16:12] VITALS: BP 158/85
--- NOTE | 2020-08-14 16:41 | NUR ---
ACCEPTED TO INPATIENT REHAB. ASSIGNED BED 118 A. NOTIFIED PATIENT'S NURSE, CARLIN AND CONSTRUCTION EQUIPMENT MECHANIC HELPER, KARLA. TRANSFER PENDING- EDGAR JAMESON LPN, CLINICAL LIAISON
--- NOTE | 2020-08-14 17:24 | NUR ---
1700 TRANSPORTED VIA BED WITH ASSIST X 2 TO REHAB 18A
--- NOTE | 2020-08-17 11:31 | OP ---
PATIENT NAME: ALYX REID MEDICAL RECORD: [id number] :69 LOCATION:D.MS [id number] ADMISSION DATE:08/13/20 SURGEON: ZAHIRA SEN MD DATE OF OPERATION: 08/13/2020 PREOPERATIVE DIAGNOSES: 1. Left foot infection. 2. Open wound, left foot. POSTOPERATIVE DIAGNOSES: 1. Left foot infection. 2. Open wound, left foot. PROCEDURE PERFORMED: Left below-knee amputation. INDICATIONS FOR THE PROCEDURE: Mr. Reid is a 55-year-old male with history of pressure ulcer over the lateral foot. He underwent multiple I&Ds of his foot approximately 8 weeks ago and the wound was left open. We have been performing wound VAC changes, but the foot is worsening with infection extending along the distal aspect of the fifth metatarsal. He also has very poor blood flow to the foot along with chronic kidney disease, neuropathy and diabetes. Given these factors, I believe he would benefit from below-knee amputation and he is agreeable to this. Risks, benefits and alternatives of surgery were discussed with the patient including, but not limited to pain, worsening infection, bleeding, damage to surrounding structures, complications with wound healing and potential need for further surgery. All questions were answered and consent was obtained. DESCRIPTION OF PROCEDURE: The patient was met in the holding area where his identity and confirmation of procedure was performed. The left lower extremity was marked. He was taken to the operating room where he was placed supine on the operating table and anesthesia was administered. Tourniquet was applied to the left leg and left leg was prepped and draped in a sterile fashion. The patient received preoperative antibiotics and timeout was performed before initiating the case. On initiation of the case, the leg was exsanguinated and the tourniquet was raised. Total tourniquet time was 80 minutes. An incision was made over the anterior aspect of the lower leg, 15-cm below the joint line for our below-knee amputation. We incised through the skin and subcutaneous tissues dissected down to the fascia. We continued our dissection to the midline, both medial and lateral and then extended our flap distally for our amputation. Cautery was then used to dissect through the deep compartments and muscle. We were then able to isolate the tibia and made our tibial cut just proximal to the skin incision. Fibula was then isolated in the same manner and cut just proximal to the tibia. An amputation knife was then used to excise the posterior compartment off the backside of the tibia and fibula and the skin was transected distally for removal of the lower leg, foot and ankle. The posterior vessels were then identified and tagged with hemostats. Posterior compartment was debulked leaving the gastrocs. Vascular bundles were isolated and tied off with 0 silk suture. Once everything had been tied, the tourniquet was let down and hemostasis was obtained from the remainder of the vessels. There were still some deep muscular vessels and superficial vessels that were cauterized. There appeared to be good hemostasis of our ligated areas. Tourniquet was then raised back up and we continued with our procedure. The wound was irrigated thoroughly with saline. The anterior aspect of the tibia was smoothed off with the saw during our cut. We then began fashioning our flap, bringing the gastroc up OPERATIVE REPORT [id number] ALYX REID to meet the anterior fascia. It was then able to be trimmed and approximate to the anterior fascia. We continued with closure of the deep tissues with #1 Vicryl suture, both medial and lateral. This provided good reapproximation of our deep tissues and coverage of the tibia. The subcutaneous skin was then closed. For final closure, the sural nerve was identified along the posterior flap and was cut proximal. We then performed subcutaneous skin closure using 2-0 Vicryl, again trimming the skin and being careful to avoid any dog ears or excess tissue. We had good closure of the subcutaneous tissues and then the skin edges were closed with nylon suture to complete our amputation. A sterile dressing was applied and the leg was wrapped with an Nicolás wrap. He was then turned back over to anesthesia where he was awakened, extubated, and taken to the recovery room in stable condition. POSTOPERATIVE PLAN: The patient is going to be admitted for routine postoperative care. He will receive 72 hours of IV antibiotics. The hospitalist and nephrology were consulted for medical management. Physical therapy was also consulted to assist with mobility and he may require a rehab upon discharge. COMPLICATIONS: None. ESTIMATED BLOOD LOSS: 250 mL. ANESTHESIA: General with peripheral nerve block. TRANSINT:[id number] Voice Confirmation ID: [id number] DOCUMENT ID: [id number] ZAHIRA SEN MD at 1135 CC: [id number] DICTATION DATE: 08/13/20 1130 WILDLIFE ECOLOGIST: 08/13/20 1157 DIS IN 08/14/20 [place] [id number] [facility], [facility]
== END 2020-08-14 17:14 | DRG 579 ==
LOC: D.SDCHOLD 05:38 → D.MS 05:38 → D.SDCHOLD 07:30 → D.MS 10:45
PROVIDERS: Anesthesiology; ADMIT Orthopaedic Surgery; ATTEND Orthopaedic Surgery
PROC: 0Y6J0Z2 Detachment at Left Lower Leg, Mid, Open Approach (ICD-10-PCS; principal; 2020-08-13 07:30)
DX: S91.302A Unspecified open wound, left foot, initial encounter (principal); N18.6 End stage renal disease; I12.0 Hypertensive chronic kidney disease with stage 5 chronic kidney disease or end stage renal disease; M86.9 Osteomyelitis, unspecified; E11.22 Type 2 diabetes mellitus with diabetic chronic kidney disease; E11.65 Type 2 diabetes mellitus with hyperglycemia; Z99.2 Dependence on renal dialysis; D63.1 Anemia in chronic kidney disease; E11.69 Type 2 diabetes mellitus with other specified complication

== ENCOUNTER 2020-08-14 17:47 | Inpatient (IN) | payer MEDICARE, BC ==
[~2020-08-14] VITALS: Ht 195.6 cm; Wt 126.0 kg
[~2020-08-14 17:47] MED LIST changes: +B-12 DOTS500 MCG PO; +CENTRUM MEN'S1 EACH PO; +MAXIPIME 1 GM/D51 G1 IV; +PREDNISONE10 MG PO; +PROBIOTIC1 EAC1 PO; +VANCOMYCIN 1 GM/1 G1 IV
[2020-08-14 18:05] VITALS: BP 166/83; BMI 30.9
--- NOTE | 2020-08-14 19:05 | NUR ---
BEDSIDE REPORT COMPLETE. RECEIVED PT SITTING UP IN BED. ALERT AND ORIENTED X4. C/O LEFT STUMP 3/10 ACHING DISCOMFORT. LEFT STUMP DRESSING WITH AMA WRAP INTACT. POD X1. NO DRAINAGE NOTED ON DRESSING. LEFT UPPER ARM AV FISTULA NOTED WITH DRESSING INTACT. PT STATES HE HAD DIALYSIS EARLIER TODAY. BRUIT AND THRILL INTACT. RIGHT WRIST IV PATENT, NO REDNESS OR SWELLING NOTED. DRESSING INTACT DATED 08/13/20. SWAB CAP IN USE. CALL LIGHT AND WATER WITHIN REACH. FALL PRECAUTIONS IN PLACE. CPOC
[2020-08-14 20:24] VITALS: BP 171/93
[2020-08-15 00:05] VITALS: BP 126/76
--- NOTE | 2020-08-15 02:33 | NUR ---
PT LYING IN BED ON RIGHT SIDE EYES CLOSED RESTING. RR EVEN AND UNLABORED. CALL LIGHT AND URINAL WITHIN REACH.
[2020-08-15 05:33] VITALS: BP 157/82
[2020-08-15 06:14] LABS: BASOPHILS 1.3 % (0-2); EOSINOPHILS 8.1 % (0-7); HEMATOCRIT 31.9 % (42.0-54.0); HEMOGLOBIN 10.4 g/dL (13.5-17.5); LYMPHOCYTES 14.5 % (15-50); MCH 30.6 pg (26.0-34.0); MCHC 32.6 g/dL (31.0-37.0); MCV 93.9 fL (80.0-100.0); MEAN PLATELET VOLUME 10.5 fL (7.4-10.4); MONOCYTES 13.4 % (2-11); NEUTROPHILS 62.7 % (40-80); RDW 14.5 % (11.5-14.5)
[2020-08-15 06:17] LABS: PLATELET COUNT 351 10x3/uL (130-400); WBC 15.1 10x3/uL (4.8-10.8)
[2020-08-15 06:57] LABS: ANION GAP 15.4 mmol/L (8-16); CALCIUM 10.5 mg/dL (8.5-10.1); CARBON DIOXIDE 27.9 mmol/L (21.0-32.0); CREATININE - SERUM 6.2 mg/dL (0.6-1.3); POTASSIUM - SERUM 4.3 mmol/L (3.5-5.1)
[2020-08-15 09:21] VITALS: Ht 195.6 cm; Wt 126.0 kg
--- NOTE | 2020-08-15 13:13 | NUR ---
SITTING UP IN BED WATCHING TV. LLE STUMP IS WRAPED WITH AMA WRAP. HE DENIES INCREASED PAIN TO LEG. HE DOES C/O FATIGUE AFTER THERAPY. CALL LIGHT IN REACH
[2020-08-15 18:00] VITALS: BP 144/70
--- NOTE | 2020-08-15 19:00 | NUR ---
BEDSIDE REPORT COMPLETE. RECEIVED PT LYING IN BED WATCHING TV. ALERT AND ORIENTED X4. LEFT BKA DRESSING INTACT. RIGHT WRIST IV PATENT NO SIGNS OF INFECTION NOTED. LEFT UPPER ARM AVF INTACT THRILL AND BRUIT INTACT. CALL LIGHT AND WATER WITHIN REACH. CPOC
[2020-08-16] VITALS: BP 143/77
--- NOTE | 2020-08-16 01:59 | NUR ---
PT LYING IN BED ON RIGHT SIDE EYES CLOSED RESTING. NO DISTRESS NOTED. RR EVEN AND UNLABORED. CALL LIGHT WITHIN REACH
[2020-08-16 05:36] VITALS: BP 139/75
--- NOTE | 2020-08-16 06:30 | NUR ---
PT SITTING UP IN BED WATCHING TV. FSBS 190. DENIES ANY NEEDS OR PAIN. NO ACUTE CHANGES IN CONDITION THIS SHIFT. CALL LIGHT AND PERSONAL ITEMS WITHIN REACH. FALL PRECAUTIONS IN PLACE. CPOC
[2020-08-16 12:00] VITALS: BP 140/75
--- NOTE | 2020-08-16 13:33 | NUR ---
WBC TRENDING UP. DR GARCIA AND NOAM CRESPO ROUNDING ON UNIT. INFO GIVEN TO THEM ON LABS. ORAL ABX ORDERED. LLE STUMP DSG REMOVED TO ASSESSS. INCISION CLOSED WITH SUTURES. INCISION IS ALMOST ALL THE WAY AROUND THE LEG. NO S/S INFECTION NOTED. NO ODOR, REDNESS, DRAINAGE, FEVER, INCREASED PAIN NOTED. AREA CLEANED WITH WOUND PLANT OPERATOR/SHIFT SUPERVISOR AND REDRESSED JUST LIKE IT WAS DRESSED. PT HAS NO C/O. CALL LIGHT IN REACH
[2020-08-16 18:29] VITALS: BP 141/70
--- NOTE | 2020-08-16 18:58 | NUR ---
BEDSIDE REPORT COMPLETE. RECEIVED PT SITTING UP IN BED. ALERT AND ORIENTED X4. DENIES ANY NEEDS OR PAIN. LEFT STUMP DRESSING CHANGED TODAY AND INTACT. NO DISTRESS NOTED. CALL LIGHT AND WATER WITHIN REACH. CPOC
--- NOTE | 2020-08-16 23:38 | NUR ---
PT LYING IN BED AWAKE. DENIES ANY NEEDS OR PAIN. NO DISTRESS NOTED. CALL LIGHT WITHIN REACH
[2020-08-17 00:05] VITALS: BP 138/62
--- NOTE | 2020-08-17 02:53 | NUR ---
PT LYING IN BED ON RIGHT SIDE EYES CLOSED RESTING. NO DISTRESS NOTED. CALL LIGHT WITHIN REACH.
[2020-08-17 06:09] VITALS: BP 181/95
[2020-08-17 08:00] VITALS: BP 167/86
[2020-08-17 08:28] LABS: BASOPHILS 0.7 % (0-2); EOSINOPHILS 6.8 % (0-7); HEMATOCRIT 28.1 % (42.0-54.0); HEMOGLOBIN 9.2 g/dL (13.5-17.5); LYMPHOCYTES 16.5 % (15-50); MCH 30.5 pg (26.0-34.0); MCHC 32.7 g/dL (31.0-37.0); MEAN PLATELET VOLUME 10.2 fL (7.4-10.4); MONOCYTES 10.4 % (2-11); NEUTROPHILS 65.6 % (40-80); PLATELET COUNT 401 10x3/uL (130-400); RBC 3.02 10x6/uL (4.20-6.10); RDW 14.8 % (11.5-14.5); WBC 13.4 10x3/uL (4.8-10.8)
[2020-08-17 08:33] LABS: ANION GAP 13.9 mmol/L (8-16); CALCIUM 9.7 mg/dL (8.5-10.1); CARBON DIOXIDE 26.1 mmol/L (21.0-32.0); CREATININE - SERUM 9.6 mg/dL (0.6-1.3)
--- NOTE | 2020-08-17 10:25 | NUR ---
IN THERAPY AT PRESENT. DENIES INCREASED PAIN TO LLE. BULKY DSG STILL IN PLACE TO LLE STUMP. APPETITE GOOD.
[2020-08-17 19:31] VITALS: BP 124/70
--- NOTE | 2020-08-17 19:32 | NUR ---
JUST RETURNED FROM DIALYSIS
--- NOTE | 2020-08-18 01:05 | NUR ---
RESTING IN BED WITH EYES CLOSED. CALL LIGHT WITHIN REACH.
[2020-08-18 01:52] VITALS: BP 136/72
--- NOTE | 2020-08-18 04:18 | NUR ---
LAB IN ROOM OBTAINING BLOOD SAMPLE. RESTING QUIETLY. CALL LIGHT WITHIN REACH
--- NOTE | 2020-08-18 05:08 | NUR ---
LYING IN BED WATCHING TV. A&O X4. REQUESTED COFFEE AND PROVIDED. CALL LIGHT WITHIN REACH. DENIES FURTHER NEEDS
[2020-08-18 06:07] LABS: BASOPHILS 1.2 % (0-2); EOSINOPHILS 6.5 % (0-7); HEMATOCRIT 29.3 % (42.0-54.0); HEMOGLOBIN 9.4 g/dL (13.5-17.5); LYMPHOCYTES 18.8 % (15-50); MCH 29.9 pg (26.0-34.0); MCHC 32.1 g/dL (31.0-37.0); MCV 93.2 fL (80.0-100.0); MEAN PLATELET VOLUME 10.1 fL (7.4-10.4); MONOCYTES 10.1 % (2-11); NEUTROPHILS 63.4 % (40-80); PLATELET COUNT 404 10x3/uL (130-400); RBC 3.15 10x6/uL (4.20-6.10); RDW 15.1 % (11.5-14.5); WBC 12.6 10x3/uL (4.8-10.8)
--- NOTE | 2020-08-18 06:22 | NUR ---
INDEPENDANT SHOWER GIVEN. REQUESTED LEFT STUMP TO BE WRAPPED PRIOR TO SHOWER. THIS WAS COMPLETED. NO FURTHER NEEDS
[2020-08-18 06:28] LABS: ANION GAP 16.1 mmol/L (8-16); CALCIUM 8.8 mg/dL (8.5-10.1); CARBON DIOXIDE 27.3 mmol/L (21.0-32.0); CREATININE - SERUM 8.6 mg/dL (0.6-1.3); POTASSIUM - SERUM 4.4 mmol/L (3.5-5.1)
[2020-08-18 06:44] VITALS: BP 132/76
--- NOTE | 2020-08-18 10:19 | NUR ---
Nutrition Re-Assessment ESRD on HD MWF. Diet: Renal ADA PO intake: 100% x all meals Last BM: 08/18/20 Wt: 263# (08/18/20) Meds noted: retacrit, renagel, abx, creon, prednisone, MVI, SSI, lantus, lasix, probiotics Labs noted: BUN 76(H), Cr 8.6(H), GFR 7(L), Glu 217(H), POC Glu 201(H) Estimated nutrition needs: 2875-3350cal (30-35kcal/kg Adj), 115-125gms protein (1.2-1.3gms/kg), 1000mL +UOP (or per MD) Nutrition diagnosis: Altered nutrition related lab values r/t ESRD, DM AEB BUN 76, Cr 8.6, GFR 7, Glu 217, POC Glu 201. Nutrition goals: -PO intake =/>75% meals -Stable dry weight -Blood glucose to trend nearer WNL Recommendations/Interventions: -Recommend continue current diet. Will continue to honor food preferences within diet restrictions. -RD will continue to monitor PO intake and wt trend. -RD will follow-up within 7 days.
[2020-08-18 12:00] VITALS: BP 159/85
--- NOTE | 2020-08-18 14:06 | NUR ---
PATIENT ADMITTS TO REHAB FROM ACUTE FLOOR. DISCHARGE PLANS ARE FOR HIM TO RETURN TO HIS HOME WITH HIS SPOUSE. WILL CONTINUE TO FOLLOW WITH PATIENT.
[2020-08-18 18:20] VITALS: BP 169/92
--- NOTE | 2020-08-18 19:10 | NUR ---
BEDSIDE REPORT COMPLETE. RECIEVED PT SITTING UP ON SIDE OF BED. ALERT AND ORIENTED X4. DENIES ANY NEEDS OR PAIN. NO DISTRESS NOTED. LEFT BKA DRESSING C/D/I. LEFT AVF BRUIT AND THRILL INTACT. CALL LIGHT AND WATER WITHIN REACH. CPOC
[2020-08-18 20:16] VITALS: BP 169/92
[2020-08-19 00:34] VITALS: BP 152/79
--- NOTE | 2020-08-19 00:35 | NUR ---
PT LYING IN BED ON RIGHT SIDE EYES CLOSED RESTING. RR EVEN AND UNLABORED. VS STABLE. CALL LIGHT WITHIN REACH.
--- NOTE | 2020-08-19 04:06 | NUR ---
PT LYING IN BED ON RIGHT SIDE EYES CLOSED RESTING. RR EVEN AND UNLABORED.
[2020-08-19 05:16] VITALS: BP 158/82
--- NOTE | 2020-08-19 06:37 | NUR ---
PT LYING IN BED AWAKE WATCHING TV. DENIES ANY NEEDS OR PAIN. NO DISTRESS NOTED. FSBS 126. CALL LIGHT WITHIN REACH
[2020-08-19 07:23] LABS: EOSINOPHILS 5.8 % (0-7); HEMATOCRIT 29.1 % (42.0-54.0); HEMOGLOBIN 9.5 g/dL (13.5-17.5); LYMPHOCYTES 21.3 % (15-50); MCH 30.3 pg (26.0-34.0); MCHC 32.6 g/dL (31.0-37.0); MEAN PLATELET VOLUME 9.7 fL (7.4-10.4); MONOCYTES 12.7 % (2-11); NEUTROPHILS 59.2 % (40-80); PLATELET COUNT 416 10x3/uL (130-400); RBC 3.13 10x6/uL (4.20-6.10); RDW 15.2 % (11.5-14.5); WBC 15.3 10x3/uL (4.8-10.8)
[2020-08-19 07:46] LABS: ANION GAP 16.4 mmol/L (8-16); CALCIUM 8.7 mg/dL (8.5-10.1); CARBON DIOXIDE 24.4 mmol/L (21.0-32.0); POTASSIUM - SERUM 4.8 mmol/L (3.5-5.1)
--- NOTE | 2020-08-19 08:00 | NUR ---
SHIFT ASSMT COMPLETED.CL IN REACH.
[2020-08-19 12:07] VITALS: BP 171/80
--- NOTE | 2020-08-19 13:05 | NUR ---
TO HD/WC.CHART TAKEN ALONG WITH PROCRIT.
--- NOTE | 2020-08-19 14:04 | NUR ---
CARE TEAM MEETING: PATIENT IS DOING WELL IN THERAPY AND HIS TENATIVE DC DATE IS 08/25/20. WILL CONTINUE TO FOLLOW WITH PATIENT.
--- NOTE | 2020-08-19 17:35 | NUR ---
returned to room from .supper given.
[2020-08-19 18:27] VITALS: BP 171/95
--- NOTE | 2020-08-19 19:00 | NUR ---
BEDSIDE REPORT COMPLETE. RECEIVED PT LYING IN BED ALERT AND ORIENTED X4. DENIES ANY NEEDS OR PAIN. LEFT BKA DRESSING INTACT. LAVF INTACT THRILL AND BRUIT INTACT. CALL LIGHT AND WATER WITHIN REACH. CPOC
[2020-08-20 00:15] VITALS: BP 157/76
--- NOTE | 2020-08-20 01:33 | NUR ---
PT LYING IN BED ON RIGHT SIDE EYES CLOSED RESTING. RR EVEN AND UNLABORED. CALL LIGHT WITHIN REACH.
--- NOTE | 2020-08-20 05:50 | NUR ---
PT SHOWERED INDEPENDENTLY THIS AM. COVERED LEFT STUMP DRESSING WITH PLASTIC BAG AND SEALED WITH FOAM TAPE.
[2020-08-20 06:20] VITALS: BP 150/82
[2020-08-20 11:57] VITALS: BP 144/78
--- NOTE | 2020-08-20 14:38 | NUR ---
SITTING IN WC IN [place]. HAS BEEN ROLLING AROUND UNIT FOR EXERCISE. DENIES INCREASED PAIN. LLE STUMP WRAPED IN PADDING AND AMA WRAP.
--- NOTE | 2020-08-20 18:58 | NUR ---
BEDSIDE REPORT COMPLETE. RECEIVED PT SITTING UP IN W/C VISITING WITH . ALERT AND ORIENTED X4. DENIES ANY NEEDS OR PAIN. LLE STUMP DRESSING INTACT. LEFT AVF WNL, BRUIT AND THRILL INTACT. NO DISTRESS NOTED. CALL LIGHT WITHIN REACH. CPOC
[2020-08-20 20:00] VITALS: BP 131/83
[2020-08-21 00:17] VITALS: BP 158/79
--- NOTE | 2020-08-21 00:18 | NUR ---
PT LYING IN BED SUPINE EYES CLOSED RESTING. EASILY AROUSED WITH STIMULI. VS STABLE. DENIES ANY NEEDS OR PAIN. NO DISTRESS NOTED. CALL LIGHT WITHIN REACH
--- NOTE | 2020-08-21 04:48 | NUR ---
PT LYING IN BED ON RIGHT SIDE EYES CLOSED RESTING. NO ACUTE CHANGES IN CONDITION THIS SHIFT. RR EVEN AND UNLABORED. CALL LIGHT WITHIN REACH
[2020-08-21 06:03] VITALS: BP 155/84
[2020-08-21 07:03] LABS: BASOPHILS 1.1 % (0-2); EOSINOPHILS 4.9 % (0-7); HEMATOCRIT 30.5 % (42.0-54.0); HEMOGLOBIN 9.8 g/dL (13.5-17.5); LYMPHOCYTES 23.6 % (15-50); MCH 30.3 pg (26.0-34.0); MCHC 32.1 g/dL (31.0-37.0); MCV 94.4 fL (80.0-100.0); MEAN PLATELET VOLUME 9.9 fL (7.4-10.4); MONOCYTES 12.3 % (2-11); NEUTROPHILS 58.1 % (40-80); PLATELET COUNT 462 10x3/uL (130-400); RBC 3.23 10x6/uL (4.20-6.10); RDW 14.9 % (11.5-14.5); WBC 15.8 10x3/uL (4.8-10.8)
[2020-08-21 07:09] LABS: ANION GAP 20.1 mmol/L (8-16); CALCIUM 8.7 mg/dL (8.5-10.1); CARBON DIOXIDE 24.9 mmol/L (21.0-32.0); CREATININE - SERUM 8.8 mg/dL (0.6-1.3)
--- NOTE | 2020-08-21 07:33 | NUR ---
RESTING IN BED, NO DISTRESS NOTED, ALERT AND O, DENIES NEEDS THIS AM, CONT TO MONITOR SUGARS
--- NOTE | 2020-08-21 13:00 | NUR ---
RETACRIT 2 VIALS SENT TO DIALYSIS WITH PT FOR INFUSION
--- NOTE | 2020-08-21 19:41 | NUR ---
AWAKE AND ALERT. RESTING IN BED. RESPIRATIONS UNLABORED. LEFT ARM AV FISTULA IN PLACE. HAD DIALYSIS EARLIER THIS AFTERNOON. STATES HE FEELS FINE. LEFT BKA SITE COVERED WITH DRESSING AND AMA WRAP. NO DRAINAGE NOTED. CALL LIGHT IN REACH.
[2020-08-21 23:46] VITALS: BP 132/79
--- NOTE | 2020-08-22 01:23 | NUR ---
RESTING WITH EYES CLOSED AND RESPIRATIONS UNLABORED. NO DISTRESS NOTED.
--- NOTE | 2020-08-22 05:27 | NUR ---
QUIET HOURS. NO ACUTE CHANGES IN CONDITION THIS SHIFT. RESTING IN BED WITH NO DISTRESS NOTED.
[2020-08-22 06:22] VITALS: BP 163/87
[2020-08-22 07:00] VITALS: BP 133/65
--- NOTE | 2020-08-22 08:00 | NUR ---
SHIFT ASSMT COMPLETED.
[2020-08-22 12:00] VITALS: BP 153/70
[2020-08-22 18:00] VITALS: BP 151/81
[2020-08-22 19:00] VITALS: BP 180/95
--- NOTE | 2020-08-22 19:18 | NUR ---
AWAKE AND ALERT. RESTING IN BED WITH RESPIRATIONS UNLABORED. DRESSING INTACT TO LEFT BKA. NO ACUTE DISTRESS NOTED.
[2020-08-23] VITALS (7 sets, daily range): BP systolic 148–178; BP diastolic 84–92
--- NOTE | 2020-08-23 05:10 | NUR ---
QUIET HOURS. NO ACUTE CHANGES IN CONDITION THIS SHIFT. RESTING IN BED WITH NO DISTRESS NOTED.
--- NOTE | 2020-08-23 08:00 | NUR ---
SHIFT ASSMT COMPLETED.
--- NOTE | 2020-08-23 12:00 | NUR ---
EATING LUNCH.CL IN REACH.
--- NOTE | 2020-08-23 16:00 | NUR ---
UP IN WC ROAMING.
--- NOTE | 2020-08-23 19:31 | NUR ---
RESTING IN BED, NO DISTRESS NOTED, EYES CLOSED, CONT TO MONITOR SUGARS
[2020-08-24 05:54] VITALS: BP 147/81
[2020-08-24 07:07] LABS: BASOPHILS 2.5 % (0-2); EOSINOPHILS 4.5 % (0-7); HEMATOCRIT 29.5 % (42.0-54.0); HEMOGLOBIN 9.3 g/dL (13.5-17.5); LYMPHOCYTES 22.2 % (15-50); MCHC 31.7 g/dL (31.0-37.0); MCV 94.7 fL (80.0-100.0); MEAN PLATELET VOLUME 9.1 fL (7.4-10.4); MONOCYTES 10.5 % (2-11); NEUTROPHILS 60.3 % (40-80); PLATELET COUNT 541 10x3/uL (130-400); RBC 3.11 10x6/uL (4.20-6.10); RDW 15.7 % (11.5-14.5); WBC 16.5 10x3/uL (4.8-10.8)
[2020-08-24 07:41] LABS: ANION GAP 18.1 mmol/L (8-16); CALCIUM 8.6 mg/dL (8.5-10.1); CARBON DIOXIDE 22.5 mmol/L (21.0-32.0); CREATININE - SERUM 9.4 mg/dL (0.6-1.3); POTASSIUM - SERUM 4.6 mmol/L (3.5-5.1)
[2020-08-24 12:00] VITALS: BP 149/73
--- NOTE | 2020-08-24 12:42 | NUR ---
JUST LEFT FLOOR AND WHEELED SELF TO DIALYSIS. HE HAS BEEN UP SINCE MORNING AND WORKED WITH THERAPY SINCE. DENIES NEEDS OR C/O. DSG TO LLE STUMP IN PLACE. ORTO NURSE STATED NO ONE IS TO CHANGE DSG BUT ORTHO STAFF. NO ODOR OR S/S INFECTION NOTED AROUND STUMP. HE DENIES PAIN.
--- NOTE | 2020-08-24 17:20 | NUR ---
PT JUST NOW BACK FROM DIALYSIS.
[2020-08-24 18:10] VITALS: BP 154/88
--- NOTE | 2020-08-24 18:55 | NUR ---
BEDSIDE REPORT COMPLETE. RECEIVED PT SITTING UP IN BED AWAKE. ALERT AND ORIENTED X4. DENIES ANY NEEDS OR PAIN. NO DISTRESS NOTED. NO IV OR OXYGEN. LEFT BKA DRESSING INTACT, ORTHO CHANGES DRESSING, PER PT DRESSING HAS NOT BEEN CHANGED SINCE LAST MONDAY. LEFT ARM RESERVE D/T LAVF THRILL AND BRUIT INTACT. PT DENIES ANY NEEDS OR PAIN. CALL LIGHT AND PERSONAL ITEMS WITHIN REACH. BED/CHAIR ALARM WAIVER ON FILE. CPOC
[2020-08-25 00:09] VITALS: BP 150/71
--- NOTE | 2020-08-25 00:40 | NUR ---
PT LYING IN BED ON RIGHT SIDE EYES CLOSED RESTING. RR EVEN AND UNLABORED. CALL LIGHT WITHIN REACH.
[2020-08-25 05:09] VITALS: BP 139/63
--- NOTE | 2020-08-25 05:57 | NUR ---
PT SITTING UP IN W/C. DENIES ANY NEEDS OR PAIN. NO DISTRESS NOTED. FSBS 162 PT REFUSED SL INSULIN, PT STATES HE WILL WAIT TO TAKE HIS 0800 HUMALOG. CALL LIGHT WITHIN REACH.
[2020-08-25] MEDS ORDERED: HYDROCODONE-AC1 EAC2 PO (10:12)
--- NOTE | 2020-08-25 10:13 | RHP ---
PATIENT: ALYX WALSH MEDICAL RECORD: [id number] ACCOUNT: [id number] LOCATION:[id number] : 69 ADMISSION DATE: 08/14/20 REHABILITATION HISTORY AND PHYSICAL EXAMINATION POST ADMISSION PHYSICIAN EXAMINATION POST ADMISSION PHYSICAL EXAMINATION AND HISTORY AND PHYSICAL ADMITTING DIAGNOSIS: Amputation, left below the knee. HISTORY OF PRESENT ILLNESS: The patient is a 55-year-old gentleman with a pressure ulcer to his lateral foot, underwent multiple I&Ds of his foot approximately 8 weeks ago and the wound was left open. He had a wound VAC, but continued to have worsening infection extending down to the distal aspect of his fifth metatarsal. Apparently, he has got pretty bad blood flow. He has got chronic kidney disease stage V and requires dialysis 3 times weekly. Given these factors, he made the decision on the advice of the surgeon to undergo a left ekaqu-bva-ckgy amputation, which was done on 08/13/2020. 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 He was actively hunting and fishing. He was also independent for all his ADLs. [place] with 12 steps to enter his front of his home and 6 steps to enter the side of his home. Physical therapy has been working with him. He fatigues easily, requires moderate assist. The patient required training for mobility and ADLs. He is nonweightbearing on his left lower extremity. We will get prosthetics involved during his stay. He is also a high fall risk and require balance and endurance training. COMORBIDITIES: In this patient include anemia, chronic kidney disease, hypertension, hypotension, weakness, nausea, vomiting and fatigue. PAST MEDICAL HISTORY: Significant for pancreatic cancer. He has got a history of varicosities. He has got a history of chronic kidney disease, got a history of anemia and hypertension. PAST SURGICAL HISTORY: Includes gallbladder surgery, a Whipple. He has had a left leg varicose vein fistula, dialysis catheter placement, multiple I&Ds and now a left pylzd-aka-sjqk amputation. ALLERGIES: No known drug allergies. CURRENT MEDICATIONS: Include Neurontin 400 mg b.i.d. He is on prednisone 10 mg daily. He is on a multivitamin daily. He is on Humalog 12 units with meals. He is on Creon 2 caps t.i.d. with meals. He is on sevelamer 2.4 grams t.i.d. with meals. Calcium carbonate chews 3000 mg t.i.d. He is on a Humalog high resistance sliding scale, Lasix 160 mg b.i.d., Requip 0.2 mg at bedtime, Procardia 60 mg at bedtime, lactobacillus 1 tab b.i.d., Lantus 34 units b.i.d., B12 1000 mcg daily, and [place] he is on 5/325 one tab every 4-6 hours as needed for pain, but I am going to adjust this. HABITS: No current alcohol or tobacco use. FAMILY HISTORY: Noncontributory. SOCIAL HISTORY: The patient hopes to return back home and get back to his prior HISTORY AND PHYSICAL [id number] ALYX WALSH level of functioning. REVIEW OF SYSTEMS: GENERAL: does complain of weakness and fatigue. HEENT: Denies cold, cough or congestion. CARDIOVASCULAR: Denies any chest pain. PHYSICAL EXAMINATION: VITAL SIGNS: Stable, afebrile. GENERAL: A morbidly obese gentleman, in no acute distress upon exam. HEENT: Normocephalic and atraumatic. Mucosa moist. NECK: Supple. No lymphadenopathy. LUNGS: Clear at this time. No wheezing or rales. HEART: Regular rate and rhythm. No murmurs, rubs or gallops. ABDOMEN: Soft, benign, nondistended. Positive bowel sounds times 4. EXTREMITIES: No clubbing or cyanosis. Postoperative area looks pretty good to his left jvwtl-pzk-jiot amputation. NEUROLOGIC: He does have some diffuse weakness. His white count is 15,000. His H are 10 and 31, and platelet count of 351. His sodium is 137, potassium 4.3, BUN and creatinine of 49 and 6.2 and blood sugar was noted to be 69. ASSESSMENT: This is a 55-year-old gentleman admitted to the rehab with a working diagnosis of lscdz-jdo-qzcy amputation. The patient has potential to make improvement. We instituted the following multidisciplinary therapies including, not limited to physical, occupational, respiratory, speech, nutritional services, prosthetics and orthotics. Given his complex medical condition and risks of further medical complications, rehabilitation services cannot be provided at a low level of care such as half-way facility. PLAN: 1. Admit to [facility] for inpatient therapy to include the following disciplines; A. Physical therapy to improve gait, all transfer skills and bed mobility to a modified independent level. B. Occupational therapy to improve activities of daily living. C. Case management to help with discharge planning and placement options. D. Nutrition to assist with nutritional needs. E. Rehabilitation nursing to assist in monitoring the patient's underlying medical conditions and to assist with any type of bowel or bladder management. 2. The patient's current medication and medical care will be continued. 3. He will be placed on standard fall precautions. 4. The patient's estimated length of stay is approximately 7-10 days. 5. discuss this patient during care team staff meeting this week. I will watch his white count, but anticipate this is from his prednisone and I will see again in the a.m. on Monday. TRANSINT:[id number] Voice Confirmation ID: [id number] DOCUMENT ID: [id number] GISELA notes whether there has been none or any medical/functional change since admission: - No change since preadmission screen. GISELA attests patient continues to be appropriate for IRF: HISTORY AND PHYSICAL [id number] ALYX WALSH - Continues to be appropriate. GASTON CARLTON MD at 1013 CC: [id number] DICTATION DATE: 08/15/201735 SENIOR VICE PRESIDENT AND CHIEF INFORMATION OFFICER: 08/15/201912 ADM IN [facility] [address] [place] [address]
--- NOTE | 2020-08-25 11:24 | NUR ---
ORDER FAXED TO [employer] FOR A WHEELCHAIR FOR HOME USE. WILL CONTINUE TO FOLLOW WITH PATIENT.
[2020-08-25 12:24] VITALS: BP 163/84
--- NOTE | 2020-08-25 13:16 | NUR ---
ROLLING AROUND UNIT IN WC. DENIES PAIN OR NEEDS. ORTHO NURSE ROUNDED ON PT AND RE-WRAPED HIS STUMP.
--- NOTE | 2020-08-25 14:12 | NUR ---
PATIENT DISCHARGING HOME WITH FAMILY IN AM. [facility] WILL PROVIDE THERAPY AT HOME. [facility] TO PATIENT FOR HOME USE. NIKOLAS SIGNED, IMM SERVED AND EXPLIANED, ONE GIVEN TO PATIENT AND ONE FILED IN CHART. PATIENT WILL CONTINUE SAME HD DAYS AT THE SAME CLINIC AND WILL SEE DR. SOLOMON AT THAT TIME. DR. SEN 09/08/20 @ 8:20. DISCHARGE INSTRUCTIONS FAXED TO PCP, HOME HEALTH AND REVIEWED WITH PATIENT. NO COMPARE DATA REVIEWED PER PATIENT REQUEST.
--- NOTE | 2020-08-25 14:42 | NUR ---
Nutrition Re-Assessment Diet: Renal ADA PO intake: 100% x all meals Last BM: 08/23/20 Wt: 272# (08/25/20); Admit Wt: 260# (08/14/20) Meds noted: retacrit, renagel, abx, creon, prednisone, SSI, lasix, lantus, probiotics Labs noted: BUN 112(H), Cr 9.4(H), GFR 6(L), POC Glu 115(H) Estimated nutrition needs: 2875-3350cal (30-35kcal/kg Adj), 115-125gms protein (1.2-1.3gm/kg), 1000mL +UOP (or per MD) Nutrition diagnosis: Altered nutrition related lab values r/t ESRD AEB BUN 112(H), Cr 9.4(H), GFR 6(L). Nutrition goals: -PO intake =/>75% meals -Meet est fluid needs without fluid overload -Dry weight stable -Glucose at or near normal Recommendations/Interventions: -Recommend continue current diet. Will continue to honor food preferences within diet restrictions. -Will follow-up within 7 days.
[2020-08-25 18:51] VITALS: BP 161/86
[2020-08-26] VITALS: BP 149/76
[2020-08-26 00:55] VITALS: BP 149/76
--- NOTE | 2020-08-26 02:19 | NUR ---
PT LYING IN BED ON RIGHT SIDE EYES CLOSED RESTING. RR EVEN AND UNLABORED. CALL LIGHT WITHIN REACH
--- NOTE | 2020-08-26 05:11 | NUR ---
PT UP IN W/C SHAVING. PT WANTING TO SHOWER, COVERED LEFT BKA DRESSING WITH BAG IN ORDER TO KEEP DRY. PT DENIES ANY OTHER NEEDS OR PAIN. NO DISTRESS NOTED.
[2020-08-26 05:43] VITALS: BP 161/85
[2020-08-26 07:28] LABS: EOSINOPHILS 4.1 % (0-7); HEMATOCRIT 28.7 % (42.0-54.0); HEMOGLOBIN 9.5 g/dL (13.5-17.5); LYMPHOCYTES 25.2 % (15-50); MCV 93.8 fL (80.0-100.0); MEAN PLATELET VOLUME 8.9 fL (7.4-10.4); MONOCYTES 11.5 % (2-11); NEUTROPHILS 58.2 % (40-80); PLATELET COUNT 496 10x3/uL (130-400); RBC 3.06 10x6/uL (4.20-6.10); RDW 15.6 % (11.5-14.5); WBC 15.2 10x3/uL (4.8-10.8)
[2020-08-26 07:35] LABS: ANION GAP 20.1 mmol/L (8-16); CALCIUM 8.2 mg/dL (8.5-10.1); CARBON DIOXIDE 24.9 mmol/L (21.0-32.0); CREATININE - SERUM 8.3 mg/dL (0.6-1.3)
--- NOTE | 2020-08-26 08:00 | NUR ---
PATIENT IS ALERT/ORIENT. SITTING UP ON THE SIDE OF THE BED TO EAT BREAKFAST. CALL LIGHT WITHIN REACH. VOICES NO NEEDS AT THIS TIME. WILL CONTINUE WITH PLAN OF CARE. PLAN TO DISCHARGE HOME TODAY
--- NOTE | 2020-08-26 10:16 | NUR ---
PATIENT OFF THE FLOOR IN DIALYSIS CLINIC FOR TREATMENT
--- NOTE | 2020-08-26 13:34 | NUR ---
DISCHARGE INSTRUCTIONS GONE OVER WITH PATIENT AND PATIENTS .
--- NOTE | 2020-08-26 14:11 | NUR ---
PATIENT DISCHARGED TO HOME WITH .
== END 2020-08-26 14:11 | disposition home health service (06) | DRG 559 ==
LOC: D.REHAB 17:47
PROVIDERS: Internal Medicine; ADMIT Emergency Medicine; ATTEND Emergency Medicine
DX: Z47.81 Encounter for orthopedic aftercare following surgical amputation (principal); N18.6 End stage renal disease; Z89.512 Acquired absence of left leg below knee; I12.9 Hypertensive chronic kidney disease with stage 1 through stage 4 chronic kidney disease, or unspecified chronic kidney disease; D63.1 Anemia in chronic kidney disease; R53.83 Other fatigue; R11.2 Nausea with vomiting, unspecified; R53.1 Weakness; E11.9 Type 2 diabetes mellitus without complications; Z79.4 Long term (current) use of insulin; Z99.2 Dependence on renal dialysis